=== PATIENT | male | born 1955 | race Caucasian/White ===

== ENCOUNTER 2020-03-22 14:07 | Outpatient (REF) | payer OTHER, SELFPAY ==
--- NOTE | 2020-03-22 15:11 | XR_ITS ---
EXAMINATION: XR HAND, LEFT CLINICAL INFORMATION: Left hand pain COMPARISON: None TECHNIQUE: PA, lateral, and oblique views of the left hand. FINDINGS: There is no evidence of acute fracture or dislocation of the left hand. No radiopaque foreign body is seen. There is soft tissue swelling/mass seen about the dorsum of the 4th proximal and mid phalanges. No underlying bony erosion is seen. No periosteal new bone formation is noted. Joint spaces are maintained. There is mild spurring about the 1st carpometacarpal joint. XR/XR hand LT min 3V IMPRESSION: 1. Soft tissue structure, dorsum of the left 4rth finger. 2. No significant bony abnormality identified.
== END 2020-03-22 14:08 | disposition home or self-care (01) ==
LOC: HO.HOSX 14:07
PROVIDERS: PCP Internal Medicine; Visit Provider Orthopaedic Surgery
DX: M79.89 Other specified soft tissue disorders (principal)
CPT/HCPCS: 73130; 99202

== ENCOUNTER → 2020-05-22 13:02 | Outpatient (BNVA) | payer OTHER, SELFPAY | PROVIDERS: PCP Internal Medicine; Visit Provider Physician Assistant | DX: Z13.89 Encounter for screening for other disorder (principal) | CPT/HCPCS: Q3014 ==

== ENCOUNTER → 2020-07-24 13:01 | Outpatient (BNVA) | payer OTHER, SELFPAY | PROVIDERS: PCP Internal Medicine; Referring Provider Internal Medicine; Visit Provider Internal Medicine Cardiovascular Disease | DX: I10 Essential (primary) hypertension (principal) | CPT/HCPCS: 93005; 99202 ==

== ENCOUNTER → 2020-09-20 15:00 | Outpatient (BNVA) | payer OTHER, SELFPAY | PROVIDERS: PCP Internal Medicine; Visit Provider Physician Assistant | DX: K21.9 Gastro-esophageal reflux disease without esophagitis (principal); K44.9 Diaphragmatic hernia without obstruction or gangrene | CPT/HCPCS: 99212 ==

== ENCOUNTER 2020-10-27 15:31 | Outpatient (REF) | payer MEDICARE, SELFPAY ==
--- NOTE | ~2020-10-27 | XR_ITS ---
EXAMINATION: XR KNEE, RIGHT XR KNEE, LEFT CLINICAL INFORMATION: Right and left knee pain. COMPARISON: None TECHNIQUE: AP, tunnel, lateral, and sunrise views of the right and left knee. FINDINGS: Right Knee: Mild medial compartment joint space narrowing. Tiny tricompartmental marginal osteophytes. No osseous erosion. Medial and lateral compartment chondrocalcinosis. No fracture or dislocation. No significant joint effusion. Left Knee: Mild medial compartment joint space narrowing. Tiny tricompartmental marginal osteophytes. No osseous erosion. Medial and lateral compartment chondrocalcinosis. No fracture or dislocation. No significant joint effusion. XR/XR knee RT 4V IMPRESSION: Right Knee: Mild tricompartmental osteoarthritis. Medial and lateral compartment chondrocalcinosis. Left Knee: Mild tricompartmental osteoarthritis. Medial and lateral compartment chondrocalcinosis.
--- NOTE | ~2020-10-27 | XR_ITS ---
EXAMINATION: XR KNEE, RIGHT XR KNEE, LEFT CLINICAL INFORMATION: Right and left knee pain. COMPARISON: None TECHNIQUE: AP, tunnel, lateral, and sunrise views of the right and left knee. FINDINGS: Right Knee: Mild medial compartment joint space narrowing. Tiny tricompartmental marginal osteophytes. No osseous erosion. Medial and lateral compartment chondrocalcinosis. No fracture or dislocation. No significant joint effusion. Left Knee: Mild medial compartment joint space narrowing. Tiny tricompartmental marginal osteophytes. No osseous erosion. Medial and lateral compartment chondrocalcinosis. No fracture or dislocation. No significant joint effusion. XR/XR knee LT 4V IMPRESSION: Right Knee: Mild tricompartmental osteoarthritis. Medial and lateral compartment chondrocalcinosis. Left Knee: Mild tricompartmental osteoarthritis. Medial and lateral compartment chondrocalcinosis.
== END 2020-10-27 15:32 | disposition home or self-care (01) ==
LOC: HO.XRAY 15:31
PROVIDERS: PCP Internal Medicine; Visit Provider Internal Medicine
DX: M25.561 Pain in right knee (principal); M25.562 Pain in left knee
CPT/HCPCS: 73564

== ENCOUNTER → 2020-12-27 13:13 | Outpatient (BNVA) | payer MEDICARE, SELFPAY | PROVIDERS: Visit Provider Orthopaedic Surgery | DX: M79.89 Other specified soft tissue disorders (principal) | CPT/HCPCS: 99212 ==

== ENCOUNTER → 2021-01-01 14:32 | Outpatient (BNVA) | payer OTHER, SELFPAY | PROVIDERS: Visit Provider Orthopaedic Surgery | DX: M17.0 Bilateral primary osteoarthritis of knee (principal) | CPT/HCPCS: 99202 ==

== ENCOUNTER 2021-01-15 07:23 | Day surgery (SDC) | payer MEDICARE, SELFPAY ==
[2021-01-08 10:51] VITALS: BMI 30.5
--- NOTE | 2021-01-11 13:35 | P.CONAN_ITS ---
Documented by User: Britni Poole NP 01/22/21 14:28 HPI - Anesthesia Eval Consult details Narrative: 65yo M for Left Ring Finger Mass Excisional Biopsy 07/2020 cardiol eval for new 1st AV - not present at office visit. To f/u in 1 year unless symptoms. [facility] Active Problems Active Problems: All Active Problems (Updated 01/08/21 @ 10:55 by Olga Gallardo RN) Mass of soft tissue of left upper extremity (Acute) Acid reflux (Acute) Hiatal hernia (Acute) Colonoscopy refused (Acute) Bilateral primary osteoarthritis of knee (Acute) Tubular adenoma (Acute) Past Medical History Medical History Acid reflux Chronic headaches High cholesterol History of blood clots History of cerebral hemorrhage Hypertension Seizure Tubular adenoma Family History Family History Mother No problems noted. Father No problems noted. Brother Anesthesia complication Surgical History Surgical History H/O colonoscopy History of esophagogastroduodenoscopy (EGD) Hx of brain surgery Hx of cervical spine surgery Dola teeth removed Social History Social History Household Members: None Alcohol intake: current Alcohol intake frequency: former alcohol drinker Patient Tobacco Use Status: Current everyday Tobacco user Tobacco use type: Cigarette Cigarettes Per Day: 6 Advance Directives Date on File: 04/11/19 Current occupational status: unemployed Current occupation: right handed Meds Allergies Allergy/AdvReac Type Severity Reaction Status Date / Time Seasonal Allergies Allergy Mild unknown Verified 01/01/21 14:43 Home Medications Medication Instructions Recorded Confirmed Last Taken Type amlodipine 10 mg 10 mg PO DAILY 03/22/20 01/08/21 01/15/21 History tablet atorvastatin 40 40 mg PO DAILY 03/22/20 01/08/21 Unknown History mg tablet folic acid 1 mg 1 mg PO DAILY 03/22/20 01/08/21 Unknown History tablet levetiracetam 250 250 mg PO BID 03/22/20 01/08/21 01/15/21 History mg tablet multivit with 1 tab PO DAILY 03/22/20 01/08/21 Unknown History min-folic acid-lutein 400 mcg-250 mcg chewable tablet (Centrum Silver) lisinopril 40 mg 40 mg PO DAILY 07/24/20 01/08/21 Unknown History tablet chlorthalidone 25 25 mg PO DAILY 09/20/20 01/08/21 Unknown History mg tablet acetaminophen 650 1,300 mg PO Q8H 01/01/21 01/08/21 Unknown History mg PRN tablet,extended release (Arthritis Pain Relief (acetaminophen) ER) ibuprofen 600 mg 600 mg PO Q4-6H 01/01/21 01/08/21 Unknown History tablet PRN omeprazole 40 mg 40 mg PO DAILY 01/01/21 01/08/21 01/15/21 History capsule,delayed release Exam Exam Date and Time: January 11, 2021 1335 Height,Weight and Vital Signs: Height 6 ft Weight 102.058 kg Narrative Narrative: EKG 07/2020 Sinus rhythm 86 beats per minute, normal axis, QTC is 421 milliseconds.? IN interval 168 milliseconds. Assessment and Plan Assessment Anesthesia Assessment: Chart Reviewed Documented by User: Kim Queen MD 01/15/21 08:08 [facility] Past Medical History Medical History Acid reflux Chronic headaches High cholesterol History of blood clots History of cerebral hemorrhage Hypertension Seizure Tubular adenoma Functional capacity: independent ambulation Family History Family History Mother No problems noted. Father No problems noted. Brother Anesthesia complication Family history of problems with anesthesia: No Surgical History Surgical History H/O colonoscopy History of esophagogastroduodenoscopy (EGD) Hx of brain surgery Hx of cervical spine surgery Dola teeth removed History of Problems with Anesthesia: No Social History Social History Household Members: None Alcohol intake: current Alcohol intake frequency: former alcohol drinker Patient Tobacco Use Status: Current everyday Tobacco user Tobacco use type: Cigarette Cigarettes Per Day: 6 Advance Directives Date on File: 04/11/19 Current occupational status: unemployed Current occupation: right handed Meds Allergies Allergy/AdvReac Type Severity Reaction Status Date / Time Seasonal Allergies Allergy Mild unknown Verified 01/01/21 14:43 Home Medications Medication Instructions Recorded Confirmed Last Taken Type amlodipine 10 mg 10 mg PO DAILY 03/22/20 01/08/21 01/15/21 History tablet atorvastatin 40 40 mg PO DAILY 03/22/20 01/08/21 Unknown History mg tablet folic acid 1 mg 1 mg PO DAILY 03/22/20 01/08/21 Unknown History tablet levetiracetam 250 250 mg PO BID 03/22/20 01/08/21 01/15/21 History mg tablet multivit with 1 tab PO DAILY 03/22/20 01/08/21 Unknown History min-folic acid-lutein 400 mcg-250 mcg chewable tablet (Centrum Silver) lisinopril 40 mg 40 mg PO DAILY 07/24/20 01/08/21 Unknown History tablet chlorthalidone 25 25 mg PO DAILY 09/20/20 01/08/21 Unknown History mg tablet acetaminophen 650 1,300 mg PO Q8H 01/01/21 01/08/21 Unknown History mg PRN tablet,extended release (Arthritis Pain Relief (acetaminophen) ER) ibuprofen 600 mg 600 mg PO Q4-6H 01/01/21 01/08/21 Unknown History tablet PRN omeprazole 40 mg 40 mg PO DAILY 01/01/21 01/08/21 01/15/21 History capsule,delayed release Assessment and Plan Final Anesthetic Review Family History of Problems with Anesthesia: No History of Problems with Anesthesia: No
[2021-01-15] VITALS (7 sets, daily range): BP systolic 110–144; BP diastolic 60–88; PULSE 67–80; RESP 16–19; TEMP 36.1–36.6; O2SAT 96–99
[2021-01-15] MEDS: Lactated Ringers 1,000 ML 100 ML IVCONT (08:04)
--- NOTE | 2021-01-15 09:17 | P.CONAN_ITS ---
[facility] Active Problems Active Problems: All Active Problems (Updated 01/08/21 @ 10:55 by Olga powers RN) Mass of soft tissue of left upper extremity (Acute) Acid reflux (Acute) Hiatal hernia (Acute) Colonoscopy refused (Acute) Bilateral primary osteoarthritis of knee (Acute) Tubular adenoma (Acute) Past Medical History Medical History Acid reflux Chronic headaches High cholesterol History of blood clots History of cerebral hemorrhage Hypertension Seizure Tubular adenoma Functional capacity: independent ambulation Family History Family History Mother No problems noted. Father No problems noted. Brother Anesthesia complication Family history of problems with anesthesia: No Surgical History Surgical History H/O colonoscopy History of esophagogastroduodenoscopy (EGD) Hx of brain surgery Hx of cervical spine surgery [place] teeth removed History of Problems with Anesthesia: No Social History Social History Household Members: None Alcohol intake: current Alcohol intake frequency: former alcohol drinker Patient Tobacco Use Status: Current everyday Tobacco user Tobacco use type: Cigarette Cigarettes Per Day: 6 Advance Directives Information Provided: Yes (informational brochure mailed) Advance Directives Date on File: 04/11/19 Current occupational status: unemployed Current occupation: right handed Meds Allergies Allergy/AdvReac Type Severity Reaction Status Date / Time Seasonal Allergies Allergy Mild unknown Verified 01/01/21 14:43 Active Medications: Current Medications Lactated Ringer's (Lr) 1,000 mls @ 100 mls/hr IVCONT .Q10H MARCELLO Last Admin: 01/15/21 08:04 Dose: 100 mls/hr Documented by: Home Medications Medication Instructions Recorded Confirmed Last Taken Type amlodipine 10 mg tablet 10 mg PO DAILY 03/22/20 01/08/21 01/15/21 History atorvastatin 40 mg tablet 40 mg PO DAILY 03/22/20 01/08/21 Unknown History folic acid 1 mg tablet 1 mg PO DAILY 03/22/20 01/08/21 Unknown History levetiracetam 250 mg tablet 250 mg PO BID 03/22/20 01/08/2101/15/21 History multivit with min-folic 1 tab PO DAILY 03/22/20 01/08/21 Unknown History acid-lutein 400 mcg-250 mcg chewable tablet (Centrum Silver) lisinopril 40 mg tablet 40 mg PO DAILY 07/24/20 01/08/21 Unknown History chlorthalidone 25 mg tablet 25 mg PO DAILY 09/20/20 01/08/21 Unknown History acetaminophen 650 mg 1,300 mg PO Q8H PRN 01/01/21 01/08/21 Unknown History tablet,extended release (Arthritis Pain Relief (acetaminophen) ER) ibuprofen 600 mg tablet 600 mg PO Q4-6H PRN 01/01/21 01/08/21 Unknown History omeprazole 40 mg capsule,delayed 40 mg PO DAILY 01/01/21 01/08/21 01/15/21 History release Exam Exam Date and Time: January 15, [id number] Height,Weight and Vital Signs: Height 6 ft Weight 102.058 kg Last Vital Signs Temp 98 F 01/15/21 07:31 Pulse 80 01/15/21 07:31 Resp 19 01/15/21 07:31 BP 110/78 01/15/21 07:31 Pulse Ox 97 01/15/21 07:31 Airway Mallampati Class: III TM Dist: >3cm Neck ROM: Full Denture: Upper Heart: RRR Lungs: CTA Assessment and Plan Final Anesthetic Review Family History of Problems with Anesthesia: No History of Problems with Anesthesia: No Final Preanesthetic Review: No Changes in Pt Med Stat Patient Risk: Intermediate Procedure Risk: Intermediate Anesthetic Plan Anesthetic Plan: GA Disposition: Standard PACU
--- NOTE | 2021-01-15 09:33 | MHC.SHP ---
Pre-Procedural Eval Section A Date of Service: 01/15/21 The patient is an INPATIENT: No Changes since office visit: No Cold of Flu in the past 2 weeks, No New Medical Problems, No Changes in Medication and No Patient answered all questions The History & Physical has been completed within 30 days and I have reviewed it.: Yes Section B Chief Complaint: Soft tissue disorder Allergies: Allergies Allergy/AdvReac Type Severity Reaction Status Date / Time Seasonal Allergies Allergy Mild unknown Verified 01/01/21 14:43 Plan I have reviewed the history and physical and performed a pertinent physical examination on my patient. No changes have occurred unless specified.
--- NOTE | 2021-01-15 09:33 | W.PM.OPN ---
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 The risks and benefits of operative treatment, including but not limited to risk of damage to blood vessels, nerves, tendons, infection, recurrence, persistent pain or numbness, incomplete resolution of preoperative symptoms, or need for further surgery were discussed with the patient and they wished to proceed with surgery. Procedure: Once consent was obtained patient was brought back to the operating suite and placed in the operating table in a supine position. Perioperative antibiotics and anesthesia was administered by the anesthesia team. A tourniquet was applied to the proximal aspect of the left upper extremity and the limb was prepped and draped in a standard surgical fashion. I performed a digital block using some 0.5% plain Marcaine. The tourniquet was not inflated during the case. A lazy-S incision was made over the dorsal aspect of the left ring finger PIP joint centered over the dorsal soft tissue mass. The incision was made through the skin to the subcutaneous tissues using a 15. Blade. I then dissected down to the level of the mass using tenotomy scissors. The mass measured approximately 2.5 cm in length by about 1.5 cm in diameter, was consistent in appearance with a lipoma. The mass was mobilized from the surrounding soft tissues, excised and placed on the back table to be sent for histopathology. It was found to lie directly dorsal to the extensor mechanism in the PIP joint. At this point the wound was copiously irrigated with normal saline and hemostasis obtained with a brief period of local pressure. The skin edges were reapproximated with 5-0 nylon suture and a sterile dressing was applied. The patient appears to have tolerated the procedure well and with no complications. All digits were well vascularized conclusion of the case.
--- NOTE | 2021-01-15 13:08 | HO.POSTANES ---
Post Anesthesia Evaluation Post Anesthesia Evaluation Vital Signs: Vital Signs Temp Pulse Resp BP Pulse Ox 01/15/21 11:15 97.0 F 70 16 144/88 H 99 01/15/21 11:00 74 16 127/72 99 01/15/21 10:45 72 16 120/85 99 01/15/21 10:40 70 16 116/72 97 01/15/21 10:35 68 16 124/86 96 01/15/21 10:30 97.0 F 67 16 114/60 96 01/15/21 07:31 98 F 80 19 110/78 97 Anesthesia: General LMA Pain Control: Satisfactory Nausea/Vomiting: None Hydration: Adequate Anesthesia-Related Issues: No Anes. Related Issues
== END 2021-01-15 12:03 | disposition home or self-care (01) ==
PROVIDERS: PCP Internal Medicine; Visit Provider Orthopaedic Surgery
PROC: (CPT 26111; principal; 2021-01-15 09:00)
DX: D21.9 Benign neoplasm of connective and other soft tissue, unspecified (principal); M79.89 Other specified soft tissue disorders; M79.645 Pain in left finger(s); I10 Essential (primary) hypertension; R56.9 Unspecified convulsions; Z86.73 Personal history of transient ischemic attack (TIA), and cerebral infarction without residual deficits; Z79.899 Other long term (current) drug therapy; F17.210 Nicotine dependence, cigarettes, uncomplicated
CPT/HCPCS: 26111; 88304; J0690; J1885; J2250; J2370; J2405; J3010

== ENCOUNTER → 2021-01-31 14:44 | Outpatient (BNVA) | payer MEDICARE, SELFPAY | PROVIDERS: PCP Internal Medicine; Visit Provider Orthopaedic Surgery | DX: M79.89 Other specified soft tissue disorders (principal); D17.9 Benign lipomatous neoplasm, unspecified | CPT/HCPCS: 99212 ==

== ENCOUNTER 2022-10-04 09:39 | Outpatient (REF) | payer OTHER, MEDICAID, SELFPAY ==
[2022-10-04 11:16] LABS: MANUAL DIFF FLAG NO
[2022-10-04 11:30] LABS: Basophils Percent Auto 0.6 % (0-2); Eosinophils Absolute Auto 0.1 X10*3/uL (0.0-0.4); Eosinophils Percent Auto 1.1 % (0-4); Hematocrit 35.9 % (42.0-52.0); Hemoglobin 12.3 g/dl (14.0-18.0); Imm Gran Abs Auto 0.03 X10*3/uL (0.00-0.03); Imm Gran Pct Auto 0.4 % (0.0-0.4); Lymphocytes Absolute Auto 2.7 X10*3/uL (1.2-4.9); Lymphocytes Percent Auto 38.5 % (20-40); Mean Corpuscular HGB Conc 34.3 g/dl (31.0-36.0); Mean Corpuscular Hemoglobin 32.7 pg (27.0-33.0); Mean Corpuscular Volume 95.5 fL (80.0-98.0); Mean Platelet Volume 10.7 fL (9.4-12.4); Monocytes Absolute Auto 0.4 X10*3/uL (0.1-1.2); Monocytes Percent Auto 5.8 % (2-11); Neutrophils Absolute Auto 3.8 x10*3/uL (2.0-8.3); Neutrophils Percent Auto 53.6 % (45-73); Platelet Count 272 X10*3/uL (160-400); Red Blood Count 3.76 X10*6/uL (4.60-5.80); Red Cell Distribution Width 12.1 % (11.0-16.0); White Blood Count 7.1 X10*3/uL (4.8-10.8)
[2022-10-04 11:33] LABS: Estimated Average Glucose 103 mg/dL; Hemoglobin A1c % 5.2 %
[2022-10-04 12:22] LABS: Albumin Level 4.8 g/dL (3.5-5.0); Alkaline Phosphatase 41 U/L (39-117); Anion Gap 18 (12-20); Aspartate Amino Transferase 18 U/L (5-37); Bilirubin Direct 0.1 mg/dL (0.0-0.5); Bilirubin Total 0.4 mg/dL (0.0-1.0); Blood Urea Nitrogen 14 mg/dL (9-16); Calcium 10.1 mg/dL (8.4-10.2); Carbon Dioxide 19 mmol/L (22-29); Chloride 105 mmol/L (96-108); Cholesterol 187 mg/dL; Estimated Glomerular Filt Rate > 60; Glucose Random 92 mg/dL (60-115); HDL Cholesterol 34 mg/dL; LDL Cholesterol Calculated 100 mg/dl; Potassium 3.6 mmol/L (3.3-5.1); Sodium 138 mmol/L (135-145); Total Protein 7.8 g/dL (6.5-8.0); Triglycerides 268 mg/dL
[2022-10-04 13:10] LABS: Alanine Aminotransferase 18 U/L (0-40)
== END 2022-10-04 09:40 | disposition home or self-care (01) ==
LOC: HO.HHCL 09:39
PROVIDERS: Visit Provider Internal Medicine
DX: I10 Essential (primary) hypertension (principal); E11.65 Type 2 diabetes mellitus with hyperglycemia
CPT/HCPCS: 36415; 80048; 80061; 80076; 83036; 85025

== ENCOUNTER 2022-11-08 14:40 | Outpatient (REF) | payer OTHER, SELFPAY ==
[2022-11-08 16:09] LABS: Basophils Absolute Auto 0.1 X10*3/uL (0.0-0.2); Basophils Percent Auto 0.6 % (0-2); Eosinophils Absolute Auto 0.1 X10*3/uL (0.0-0.4); Eosinophils Percent Auto 1.4 % (0-4); Hematocrit 35.9 % (42.0-52.0); Hemoglobin 12.7 g/dl (14.0-18.0); Imm Gran Abs Auto 0.03 X10*3/uL (0.00-0.03); Imm Gran Pct Auto 0.3 % (0.0-0.4); Lymphocytes Absolute Auto 3.4 X10*3/uL (1.2-4.9); Lymphocytes Percent Auto 34.9 % (20-40); MANUAL DIFF FLAG NO; Mean Corpuscular HGB Conc 35.4 g/dl (31.0-36.0); Mean Corpuscular Hemoglobin 32.9 pg (27.0-33.0); Mean Platelet Volume 10.2 fL (9.4-12.4); Monocytes Absolute Auto 0.6 X10*3/uL (0.1-1.2); Monocytes Percent Auto 5.8 % (2-11); Neutrophils Absolute Auto 5.5 x10*3/uL (2.0-8.3); Platelet Count 269 X10*3/uL (160-400); Red Blood Count 3.86 X10*6/uL (4.60-5.80); Red Cell Distribution Width 11.9 % (11.0-16.0); White Blood Count 9.7 X10*3/uL (4.8-10.8)
[2022-11-08 16:45] LABS: Iron 104 mcg/dL (45-160); Percent Iron Saturation 32 % (15-50); Total Iron Binding Capacity 326 mcg/dL (228-428); Unsaturated Iron Binding 222 ug/dL
[2022-11-08 17:20] LABS: Folate > 20.0 ng/mL (> or = 4.0); Vitamin B12 704 pg/mL (200-900)
== END 2022-11-08 14:41 | disposition home or self-care (01) ==
LOC: HO.HHCL 14:40
PROVIDERS: Visit Provider Internal Medicine
DX: D64.9 Anemia, unspecified (principal)
CPT/HCPCS: 36415; 82607; 82746; 83540; 85025

== ENCOUNTER 2024-07-06 09:46 | Outpatient (REF) | payer OTHER, SELFPAY ==
--- OUTSIDE RECORDS SUMMARY | 2024-07-06 10:55 | XMS_ITS | Clinical Summary ---
Author Organization [employer] Address [address] [place] [address] Care Team Providers Care Commercial Lending Vice President Name Role Phone Batsheva Bhardwaj MD Primary Care Provide r Allergies No known active allergies Medications levETIRAcetam (Keppra) 250 MG tablet Take 250 mg by mouth 2 times daily. 08/03/19 22 Active acetaminophen (Tylenol 8 Hour) 650 MG ER tabletIndications :Pain TAKE 2 TABLETS BY MOUTH EVERY 8 HOURS NEEDED 180 tablet 07/17/19 24 Active atorvastatin (Lipitor) 40 MG tabletIndications :Mixed hyperlipidemia TAKE 1 TABLET BY MOUTH AT BEDTIME 90 tablet 3 07/29/19 24 Active amLODIPine (Norvasc) 10 MG tabletIndications :Primary hypertension TAKE 1 TABLET BY MOUTH EVERY MORNING 90 tablet 3 07/29/19 24 Active lisinopril 40 MG tabletIndications :Primary hypertension,Mixe d hyperlipidemia TAKE 1 TABLET BY MOUTH EVERY EVENING 90 tablet 3 07/30/19 24 Active ferrous sulfate 325 (65 Fe) MG EC tabletIndications :Anemia, unspecified type TAKE 1 TABLET BY MOUTH EVERY OTHER DAY IN THE MORNING 45 tablet 3 10/22/19 24 Active Ascorbic Acid (vitamin C) 500 MG tabletIndications :Anemia, unspecified type TAKE 1 TABLET BY MOUTH EVERY OTHER DAY IN THE MORNING 45 tablet 3 10/22/19 24 Active fenofibrate (Triglide) 160 MG tabletIndications :Hypertriglycerid emia TAKE 1 TABLET BY MOUTH EVERY MORNING 90 tablet 04/15/19 25 Active folic acid (Folvite) 1 MG tabletIndications :Hypertriglycerid emia TAKE 1 TABLET BY MOUTH EVERY MORNING 90 tablet 04/15/19 25 Active carvedilol (Coreg) 6.25 MG tabletIndications :Essential hypertension TAKE 1 TABLET BY MOUTH TWICE DAILY IN THE MORNING AND IN THE EVENING WITH FOOD 60 tablet 1 05/14/19 25 Active sucralfate (Carafate) 1 g tabletIndications :Gastroesophageal reflux disease, unspecified whether esophagitis present TAKE 1 TABLET BY MOUTH TWICE DAILY BEFORE BREAKFAST AND BEFORE SUPPER 60 tablet 1 05/14/19 25 Active melatonin 3 MG tabletIndications :Primary insomnia TAKE 1 TABLET BY MOUTH 30 TO 60 MINUTES BEFORE BEDTIME 30 tablet 05/20/19 25 Active chlorthalidone (Hygroton) 50 MG tabletIndications :Essential hypertension TAKE 1 TABLET BY MOUTH EVERY MORNING 90 tablet 06/19/19 25 Active cetirizine (ZyrTEC) 10 MG tabletIndications :Seasonal allergies TAKE 1 TABLET BY MOUTH EVERY EVENING 90 tablet 06/19/19 25 Active Multiple Vitamins-Minerals (Cerovite Senior) tabletIndications :Generalized abdominal pain TAKE 1 TABLET BY MOUTH EVERY MORNING 90 tablet 06/19/19 25 Active omeprazole (PriLOSEC) [address] capsuleIndication s:Generalized abdominal pain TAKE 1 CAPSULE BY MOUTH EVERY MORNING BEFORE BREAKFAST 90 capsule 06/19/19 25 Active omeprazole (PriLOSEC) [address] capsuleIndication s:Generalized abdominal pain TAKE 1 CAPSULE BY MOUTH EVERY MORNING BEFORE BREAKFAST 90 capsule 1 12/23/19 24 025 Discontinued chlorthalidone (Hygroton) 50 MG tabletIndications :Essential hypertension TAKE 1 TABLET BY MOUTH EVERY MORNING 90 tablet 03/16/19 25 025 Discontinued cetirizine (ZyrTEC) 10 MG tabletIndications :Seasonal allergies TAKE 1 TABLET BY MOUTH EVERY EVENING 90 tablet 03/16/19 25 025 Discontinued Multiple Vitamins-Minerals (Cerovite Senior) tabletIndications :Generalized abdominal pain TAKE 1 TABLET BY MOUTH EVERY MORNING 90 tablet 03/16/19 25 025 Discontinued Active Problems Problem Noted Date Diagnosed Date Benign paroxysmal vertigo, unspecified ear 07/06 Bilateral tinnitus 07/06/2024 Resistant hypertension 07/06/2024 Assessment & Plan (07/06/2024 10:31 AM EDT): I will order labs patient will be contacted with results I will refer this patient to nephrology and pharmacy I did advise low-sodium diet Irregular heart beat 02/06/2023 02/06/2023 Dizziness 11/08/2022 Colon cancer screening 11/08/2022 Seizure disorder 09/30/2022 Forgetfulness 09/30/2022 Assessment & Plan (11/08/2022 4:21 PM EDT): Waiting for neurology evaluation Anemia 09/25/2022 Assessment & Plan (11/08/2022 4:21 PM EDT): Possibly causing fatigue dizziness, blood work ordered today, colorguard ordered Patient to be contacted with results Bilateral primary osteoarthritis of knee 023 Assessment & Plan (11/08/2022 4:20 PM EDT): Declines pain management referral, declines opioids, continue with acetaminophen PRN First degree atrioventricular block 09/25/2022 Essential hypertension 09/25/2022 Assessment & Plan (11/08/2022 4:19 PM EDT): Counseling about low Na diet and weight reduction done C/w chlortalidone 50mg daily, lisinopril 40mg daily, amlodipine 10mg daily, today I added carvedilol 6.25mg BID Assessment & Plan (09/30/2022 2:45 PM EDT): Today BP is high I increase his chloralidone I advise low Na diet RTC 6 weeks in person with BP log Encounters Date Type Department Care Team Description 07/06/2024 9:15 AM EDT Office Visit [facility] [address] [place] [id number] Batsheva Bhardwaj MD Benign paroxysmal vertigo, unspecified laterality; Bilateral tinnitus; Resistant hypertension 07/01/2024 Telephone [facility] [address] [place] [address] Batsheva Bhardwaj MD Chart prep 06/17/2024 Refill [facility] [address] [place], [place] [phone] Batsheva Bhardwaj MD Essential hypertension; Seasonal allergies; Generalized abdominal pain 05/18/2024 Refill [facility] [address] [place], [place] [phone] Batsheva Bhardwaj MD Primary insomnia 05/13/2024 Refill [facility] [address] [place] [address] Batsheva Bhardwaj MD Essential hypertension; Gastroesophageal reflux disease, unspecified whether esophagitis present 04/20/2024 Refill [facility] [address] [place] [address] Batsheva Bhardwaj MD Primary insomnia 04/14/2024 Refill [facility] [address] [place] [address] Batsheva Bhardwaj MD Hypertriglyceridemia from Last 3 Months Immunizations Name Administration Dates Next Due Pneumococcal Conjugate PCV 13 01/07/2019 Social History Tobacco Use Types Packs/Day Years Used Date Smoking Tobacco: Every Day Cigarettes Passive Smoke Exposure: Current Smokeless Tobacco: Never Tobacco Cessation:Ready to Q uit: Not Asked; Counseling Given: Not Answered Alcohol Use Standard Drinks/Week Comments Never 0 (1 standard drink = 0.6 oz pur e alcohol) Depression Answer Date Recorded Patient Health Questionnaire-9 Score 0 07/06/2024 Patient Health Questionnaire-9 Score 0 07/06/2024 Last PHQ-9: Questionnaire Data Not on file 0 07/06/2024 Housing Stability Answer Date Recorded What is your housing situation today? I have [employer] bliss 07/06/[address] you li ve. Do you have problems with any of the following? None of the above 07/06/2024 Food Insecurity Answer Date Recorded Within the past 12 months, y ou worried that your food would run out before you got money to buy more: Never True 07/06/2024 Within the past 12 months,th e food you bought just didn't last and you didn't have enough money to get more: Never True Transportation Answer Date Recorded In the past 12 months, has l ack of transportation kept you from medical appts, meetings, work or from getting things needed for daily living? No 07/06/2024 Utilities Answer Date Recorded In the past 12 months, has t he electric, gas, oil or water company threatened to shut off services in your home? No 07/06/2024 Depression Answer Date Recorded Patient Health Questionnaire-2 Score 0 07/06/2024 Internet Access Answer Date Recorded Internet Access Q1 No 07/06/2024 Internet Access Q2 I do not want or need it 06/09 Sex and Gender Information Value Date Recorded Sex Assigned at Male 01/07/2022 10:36 AM EDT Legal Sex Male 10:36 AM EDT Gender Identity Male 01/07/2022 10:36 AM EDT Sexual Orientation Choose not to disclose 2021 10:36 AM EDT Last Filed Vital Signs Vital Sign Reading Time Taken Comments Blood Pressure 164/64 07/06/2024 10:31 AM EDT Pulse 72 07/06/2024 9:15 AM EDT Temperature 36.9 ??C (98.5 ??F) 07/06/2024 9:15 AM ED T Respiratory Rate 20 07/06/2024 9:15 AM EDT Oxygen Saturation 97% 11/08/2022 1:50 PM EDT Inhaled Oxygen Concentration - - Weight 94 kg (207 lb 4 oz) 07/06/2024 9:15 AM ED T Height 177.4 cm (5' 9.84 ) 07/06/2024 9:15 AM ED T Body Mass Index 29.88 07/06/2024 9:15 AM EDT Plan of Treatment Health Maintenance Due Date Last Done Comments CT Colonography 1953 Colonoscopy 1953 Colorectal Cancer Screening 1953 FIT DNA/Cologuard 1953 FIT 1953 FOBT 1953 Sigmoidoscopy 1953 Alcohol/Substance Use Screening 1965 Hepatitis C Screening 08/21/1971 DTaP/Tdap/Td Vaccines (1 - Tdap) 1972 Zoster Vaccines (1 of 2) 08/21/2003 Pneumococcal Vaccine: 50+ Years (2 of 2 - PPSV23) 03/04/2019 01/07/2019 COVID-19 Vaccine (1 - 2023-2 5 season) 2023 Influenza Vaccine (#1) 2023 Depression Screening 07/06/2025 07/06/2024, 07/06/2024 SDOH Screening 07/06/2025 07/06/2024 Tobacco Screening 07/06/2025 07/06/2024 Lipid Panel 10/05/2027 10/04/2022, 05/15/2021, 03/08/2020 RSV Patients and Patients Aged 60 years or older (1 - 1-dose 75+ series) 2028 HIB Vaccines Aged Out No longer eligi ble based on patient's age to complete this topic HPV Vaccines Aged Out No longer eligi ble based on patient's age to complete this topic Hepatitis A Vaccines Aged Out No long er eligible based on patient's age to complete this topic Hepatitis B Vaccines Aged Out No long er eligible based on patient's age to complete this topic IPV Vaccines Aged Out No longer eligi ble based on patient's age to complete this topic Meningococcal Vaccine Aged Out No tian jeremias eligible based on patient's age to complete this topic RSV under 20 months Aged Out No longe r eligible based on patient's age to complete this topic Rotavirus Vaccines Aged Out No longer eligible based on patient's age to complete this topic Procedures Procedure Name Priority Date/Time Associated Diagnosis Comments LIPID PANEL, STANDARD Routine 10/04/2022 9:42 AM EDT Essential hypertension from Last 3 Months or Most Recently Relevant to Health Maintenance Results * Lipid Panel, Standard (10/04/2022 9:42 AM EDT) Triglycerides 268 mg/dL [facility] Comment:Desirable Triglyceri de: less than 150 mg/dLBorderline High Triglyceride 150-199 mg/dLHigh Triglyceride: 200-499 mg/dLVery High Triglyceride: greater than or equal to 5OO mg/dL Cholesterol 187 mg/dL [facility] Comment:Desirable Cholestero l: less than 200 mg/dLBorderline High Cholesterol: 200-239 mg/dLHigh Cholesterol: greater than 239 mg/dL LDL Cholesterol Calculated 100 mg/dl [facility] Comment:Desirable LDL: less than 100 mg/dLNear Optimal/Above Optimal LDL: 110- 129 mg/dLBorderline High LDL: 130-159 mg/dLHigh LDL: 160-189 mg/dLVery High LDL: greater than or equal to 190 mg/dL HDL Cholesterol 34 mg/dL [facility] Comment:Desirable HDL: great er than 40 mg/dL Note: This HDL assay may give artificially low results in patients with liver disease. Blood Venous blood specimen / Unknown 10/04/2022 9:42 AM EDT 10/04/2022 11:09 AM EDT Batsheva Tracy MD LAB BLOOD ORDERABLES Final Result [facility] [address] [place] [address] [phone] from Last 3 Months or Most Recently Relevant to Health Maintenance Insurance [facility] [employer] OPTIONS (O D-SNP) Member Subscriber Plan / Payer (Ef fective 2024-Present) Name:Ralph Jose Relation to Subscriber:Self Name:Ralph Jose Payer ID:Not on file Group ID:[facility] [place] Type:Medicare Address: [place] [address] [address] [id number] Care Teams Commercial Lending Vice President Relationship Specialty Start Date End Date Batsheva Bhardwaj MD [address] [place] [address] PCP - General Family Medicine 01/07/19
--- OUTSIDE RECORDS SUMMARY | 2024-07-06 10:55 | XMS_ITS | Encounter Summary ---
Author Organization [employer] Address [address] [place] [address] Care Team Providers Care Adjunct Latin Professor Name Role Phone Batsheva Bhardwaj MD Primary Care Provide r Reason for Visit * Reason Onset Date Comments Chart prep 07/01/2024 Encounter Details Date Type Department Care Team (Late st Contact Info) Description 07/01/2024 Telephone [facility] [address] [place], [place] [phone] Batsheva Bhardwaj MD [address] [place], [place] [phone] Chart prep Social History Tobacco Use Types Packs/Day Years Used Date Smoking Tobacco: Every Day Cigarettes Passive Smoke Exposure: Current Smokeless Tobacco: Never Alcohol Use Standard Drinks/Week Comments Never 0 (1 standard drink = 0.6 oz pur e alcohol) Depression Answer Date Recorded Patient Health Questionnaire-9 Score 0 09/30/2022 Housing Stability Answer Date Recorded What is your housing situation today? I have coltonch[employer] bliss 12/26/[address] you li ve. Do you have problems with any of the following? None of the above 12/26/2022 Food Insecurity Answer Date Recorded Within the past 12 months, y ou worried that your food would run out before you got money to buy more: Never True 12/26/2022 Within the past 12 months,th e food you bought just didn't last and you didn't have enough money to get more: Never True Transportation Answer Date Recorded In the past 12 months, has l ack of transportation kept you from medical appts, meetings, work or from getting things needed for daily living? No 12/26/2022 Utilities Answer Date Recorded In the past 12 months, has t he electric, gas, oil or water company threatened to shut off services in your home? No 12/26/2022 Depression Answer Date Recorded Patient Health Questionnaire-2 Score 0 09/30/2022 Sex and Gender Information Value Date Recorded Sex Assigned at Male 01/07/2022 10:36 AM EDT Legal Sex Male 10:36 AM EDT Gender Identity Male 01/07/2022 10:36 AM EDT Sexual Orientation Choose not to disclose 2021 10:36 AM EDT documented as of this encounter Miscellaneous Notes * Telephone Encounter - Radha Samuels [place] - 07/01/2024 3:18 PM EDT Chart Prep Labs: done Images: done Referrals: complete Vaccines due: yes Screenings: colonoscopy Overdue care gaps: SDOH and PHQ-9 documented in this encounter Plan of Treatment Not on file documented as of this encounter Visit Diagnoses Not on filedocumented in this encounter Additional Health Concerns Assessment Noted Time PHQ-9 Depression Total Score: 0 10/01/19 23 2:04 PM EDT documented as of this encounter Care Teams Adjunct Latin Professor Relationship Specialty Start Date End Date Batsheva Bhardwaj MD [address] [place] [address] PCP - General Family Medicine 01/07/19 documented as of this encounter
--- OUTSIDE RECORDS SUMMARY | 2024-07-06 10:55 | XMS_ITS | Encounter Summary ---
Author Organization [employer] Address [address] [place] [address] Care Team Providers Care Retail Wireless Sales Consultant Name Role Phone Batsheva Bhardwaj MD Primary Care Provide r Reason for Visit * Reason Comments Med Refill Encounter Details Date Type Department Care Team (Late st Contact Info) Description 04/07/2022 Refill [facility] [address] [place] [address] Gerda Knapp, ANP [address] [place] [address] Gastroesophageal reflux disease, unspecified whether esophagitis present Social History Tobacco Use Types Packs/Day Years Used Date Smoking Tobacco: Never Assessed Sex and Gender Information Value Date Recorded Sex Assigned at Male 01/07/2022 10:36 AM EDT Legal Sex Male 10:36 AM EDT Gender Identity Male 01/07/2022 10:36 AM EDT Sexual Orientation Choose not to disclose 2021 10:36 AM EDT documented as of this encounter Plan of Treatment Not on file documented as of this encounter Visit Diagnoses Diagnosis Gastroesophageal reflux disease, unspecified whether esophagitis present documented in this encounter Care Teams Retail Wireless Sales Consultant Relationship Specialty Start Date End Date Batsheva Bhardwaj MD [address] [place] [address] PCP - General Family Medicine 01/07/19 [facility] 02/13/24 06/29/24 documented as of this encounter
--- OUTSIDE RECORDS SUMMARY | 2024-07-06 10:55 | XMS_ITS | Encounter Summary ---
Author Organization [employer] Address [address] [facility] 7t [place] [address] Care Team Providers Care Brimming Machine Operator Name Role Phone Batsheva Bhardwaj MD Primary Care Provide r Reason for Visit * Reason Onset Date Comments Med Refill POMOLOGY TEACHER Hours 12/05/2022 Martha, the pt 's POMOLOGY TEACHER, called regarding a request for a letter so that the pt's POMOLOGY TEACHER hours could be increased. The pt signed a release, authorizing her to turkey picker the letter at [facility], therefore, I informed her that he needs to call [facility] because the request needs to go through them. She verbalized understanding. Encounter Details Date Type Department Care Team (Late st Contact Info) Description 12/05/2022 Telephone [facility] MED & PEDS [address] [place] [address] Batsheva Bhardwaj MD [address] [place] [phone] Med Refill; POMOLOGY TEACHER Hours (Martha, the pt's POMOLOGY TEACHER, called regarding a request for a letter so that the pt's POMOLOGY TEACHER hours could be increased. The pt signed a release, authorizing her to turkey picker the letter at [facility], therefore, I informed her that he needs to call [facility] because the request needs to go through them. She verbalized understanding.) Social History Tobacco Use Types Packs/Day Years Used Date Smoking Tobacco: Every Day Cigarettes Passive Smoke Exposure: Current Smokeless Tobacco: Never Alcohol Use Standard Drinks/Week Comments Never 0 (1 standard drink = 0.6 oz pur e alcohol) Depression Answer Date Recorded Patient Health Questionnaire-9 Score 0 09/30/2022 Depression Answer Date Recorded Patient Health Questionnaire-2 Score 0 09/30/2022 Sex and Gender Information Value Date Recorded Sex Assigned at Male 01/07/2022 10:36 AM EDT Legal Sex Male 10:36 AM EDT Gender Identity Male 01/07/2022 10:36 AM EDT Sexual Orientation Choose not to disclose 2021 10:36 AM EDT documented as of this encounter Miscellaneous Notes * Telephone Encounter - Carrie Leonardo MA - 12/05/2022 3:23 PM EDT Martha, the pt's POMOLOGY TEACHER, called regarding a request for a letter so that the pt's POMOLOGY TEACHER hours could beincreased. The pt signed a release, authorizing her to turkey picker the letter at [facility], therefore, I informed her that he needs to call [facility] because the request needs to go through them. She verbalized understanding. documented in this encounter Plan of Treatment Not on file documented as of this encounter Visit Diagnoses Diagnosis Primary insomnia Persistent disorder of initiating or maintaining sleep Pain Generalized pain documented in this encounter Additional Health Concerns Assessment Noted Time PHQ-9 Depression Total Score: 0 10/01/19 23 2:04 PM EDT documented as of this encounter Care Teams Brimming Machine Operator Relationship Specialty Start Date End Date Batsheva Bhardwaj MD [address] [place] [address] PCP - General Family Medicine 01/07/19 [facility] 02/13/24 06/29/24 documented as of this encounter
--- OUTSIDE RECORDS SUMMARY | 2024-07-06 10:55 | XMS_ITS | Clinical Summary ---
Author Organization [facility] Address [address] [place] [address] Care Team Providers Care Silviculturist Name Role Phone Unavailable Primary Care Provider Unavailabl e Source Comments PLEASE NOTE, if this patient is a minor, it may be UNLAWFUL to discuss sensitive information that is contained in these records (such as FAMILY PLANNING, MENTAL HEALTH or SUBSTANCE ABUSE) with the minor patient's parent or other person without the patient's specific authorization.[facility] Allergies No known active allergies Medications clonazePAM (KLONOPIN) 0.5 mg tablet Take 0.5 mg by mouth 2 (two) times daily as needed for anxiety Active lisinopril-hydr ochlorothiazide 10-12.5 mg per tablet Take 1 Tab by mouth once daily 30 Tab 11/10/2018 Active levETIRAcetam (KEPPRA) 750 mg tablet Take 1 Tab by mouth 2 (two) times daily 60 Tab 11/10/2018 Active folic acid (FOLVITE) 1 mg tablet Take 1 Tab by mouth once daily 30 Tab 11/10/2018 Active Social History Tobacco Use Types Packs/Day Years Used Date Smoking Tobacco: Never Assessed Social Connections Answer Date Recorded Social Connections and Isolation 0 10/30/2018 Financial Resource Strain Answer Date R ecorded Financial Resource Strain 0 2018 Stress Answer Date Recorded Stress 0 10/30/2018 Physical Activity Answer Date Recorded Physical Activity 0 10/30/2018 Food Insecurity Answer Date Recorded Food 0 10/30/2018 Transportation Needs Answer Date Record ed Transportation 0 10/30/2018 Housing Stability Answer Date Recorded Housing 0 10/30/2018 Safety and Environment Answer Date Raphael rded Safety 0 10/30/2018 Utilities Answer Date Recorded Utilities 0 10/30/2018 Employment Answer Date Recorded Employment 0 10/30/2018 Sex and Gender Information Value Date Recorded Sex Assigned at Not on file Legal Sex Male 8:43 AM PDT Gender Identity Not on file Sexual Orientation Not on file Last Filed Vital Signs Vital Sign Reading Time Taken Comments Blood Pressure 154/84 10/19/2018 12:17 PM EDT Pulse 75 10/19/2018 12:17 PM EDT Temperature 36.7 ??C (98 ??F) 10/19/2018 12:17 PM EDT Respiratory Rate - - Oxygen Saturation 99% 10/19/2018 12:17 PM EDT Inhaled Oxygen Concentration - - Weight - - Height - - Body Mass Index - - Plan of Treatment Not on file [place]
--- OUTSIDE RECORDS SUMMARY | 2024-07-06 10:55 | XMS_ITS | Encounter Summary ---
Author Organization [employer] Address [address] [facility] [address] [facility] [address] 7[address] [place] [address] Care Team Providers Care Vegetable Buncher Name Role Phone Batsheva Bhardwaj MD Primary Care Provide r Reason for Visit * Reason Onset Date Comments Paperwork/Forms 05/21/2023 Encounter Details Date Type Department Care Team (Late st Contact Info) Description 05/21/2023 Telephone [facility] MEDICINE [address] [place] [address] Batsheva Bhardwaj MD [address] [place] [address] Paperwork/Forms Social History Tobacco Use Types Packs/Day Years Used Date Smoking Tobacco: Every Day Cigarettes Passive Smoke Exposure: Current Smokeless Tobacco: Never Alcohol Use Standard Drinks/Week Comments Never 0 (1 standard drink = 0.6 oz pur e alcohol) Depression Answer Date Recorded Patient Health Questionnaire-9 Score 0 09/30/2022 Housing Stability Answer Date Recorded What is your housing situation today? I have [employer] 12/26/[address] you [...] the past 12 months, has t he [employer], gas, oil or water company threatened to [...] encounter Miscellaneous Notes * Telephone Encounter - Miesha Mullins - 05/21/2023 11:42 AM EDT Tc from [facility] calling to inform she received the plan of care documents on 05/13/23 but only received 4 pages and it should have been 5 pages . Any question please contact phone # [phone] . documented in this encounter Plan of Treatment Not on file documented as of this encounter Visit Diagnoses Not on filedocumented in this encounter Additional Health Concerns Assessment Noted Time PHQ-9 Depression Total Score: 0 10/01/19 23 2:04 PM EDT documented as of this encounter Care Teams Vegetable Buncher Relationship Specialty Start Date End Date Batsheva Bhardwaj MD [address] [place] [address] PCP - General Family Medicine 01/07/19 [facility] 02/13/24 06/29/24 documented as of this encounter
--- OUTSIDE RECORDS SUMMARY | 2024-07-06 10:55 | XMS_ITS | Encounter Summary ---
Author Organization [facility] Address [address] [facility] 7[address] h Floor [place] [id number] Care Team Providers Care Dermatology Nurse Practitioner Name Role Phone Batsheva Bhardwaj MD Primary Care Provide r Reason for Visit * Reason Comments Med Refill Encounter Details Date Type Department Care Team (Late st Contact Info) Description 10/02/2022 Refill [facility] MEDICINE [address] [place], [place] [phone] Batsheva Bhardwaj MD [address] [place], [place] [phone] Pain Social History Tobacco Use Types Packs/Day Years [...] as of this encounter Visit Diagnoses Diagnosis Pain Generalized pain documented in this encounter Additional Health Concerns Assessment Noted Time PHQ-9 Depression Total Score: 0 10/01/19 23 2:04 PM EDT documented as of this encounter Care Teams Dermatology Nurse Practitioner Relationship Specialty Start Date End Date Batsheva Bhardwaj MD [address] [place], [place] [phone] PCP - General Family Medicine 01/07/19 [facility] 02/13/24 06/29/24 documented as of this encounter
--- OUTSIDE RECORDS SUMMARY | 2024-07-06 10:55 | XMS_ITS | Encounter Summary ---
Author Organization [employer] [facility] Address [address] [facility] 7t [place] [address] Care Team Providers Care Mold Cleaner Name Role Phone Batsheva Bhardwaj MD Primary Care Provide r Reason for Referral * Consultation (Routine) - Authorized Specialty Diagnoses / Procedures Referred By Pavel wiggins Referred To Contact Pharmacy Diagnoses Resistant hypertension Batsheva Bhardwaj MD [address] [place] [address] Phone: tel: fax: Referral ID Status Reason Start Date Expiration Date Visits Requested Visits Authorized [id number] Authorized Consult and Treat 07/06/2024 07/06/2025 6 6 * Consultation (Routine) - Pending Review Specialty Diagnoses / Procedures Referred By Pavel wiggins Referred To Contact Nephrology Diagnoses Resistant hypertension Batsheva Bhardwaj MD [address] [place], [place] Phone: tel: fax: Referral ID Status Reason Start Date Expiration Date Visits Requested Visits Authorized [id number] Pending Review Specialty Services Required 07/06/2024 07/06/2025 1 1 * Consultation (Routine) - Pending Review Specialty Diagnoses / Procedures Referred By Pavel wiggins Referred To Contact Otolaryngology Diagnoses Benign paroxysmal vertigo, unspecified laterality Bilateral tinnitus Batsheva Bhardwaj MD [address] [place] [address] Phone: tel: fax: Referral ID Status Reason Start Date Expiration Date Visits Requested Visits Authorized [id number] Pending Review Specialty Services Required 07/06/2024 07/06/2025 1 1 Encounter Details Date Type Department Care Team (Late st Contact Info) Description 07/06/2024 9:15 AM EDT Office Visit [facility] [address] [place] [address] Batsheva Bhardwaj MD [address] [place] [address] Benign paroxysmal vertigo, unspecified laterality; Bilateral tinnitus; Resistant hypertension Social History Tobacco Use Types Packs/Day Years [...] AM EDT documented as of this encounter Last Filed Vital Signs Vital Sign Reading Time Taken Comments Blood Pressure 164/64 07/06/2024 10:31 AM EDT Pulse 72 07/06/2024 9:15 AM EDT Temperature 36.9 ??C (98.5 ??F) 07/06/2024 9:15 AM ED T Respiratory Rate 20 07/06/2024 9:15 AM EDT Oxygen Saturation - - Inhaled Oxygen Concentration - - Weight 94 kg (207 lb 4 oz) 07/06/2024 9:15 AM ED T Height 177.4 cm (5' 9.84 ) 07/06/2024 9:15 AM ED T Body Mass Index 29.88 07/06/2024 9:15 AM EDT documented in this encounter Progress Notes * Batsheva Tracy MD - 07/06/2024 9:15 AM EDT SUBJECTIVE: Ralph De Oliveira is a 68 y.o. year old male who presents for Chronic Disease Management . Acute Concerns: Patient reports his blood pressure is much better at home and that he is only takin ine medication Patient reports he does not like to take medications that are not necessary, he reports he does nothave seizures and reports he is not taking his keppra prescribed by neurology Patient c/o on and off dizziness when he turns his head and ringing on both ears Social History Social History Narrative Not on file Patient Active Problem List Diagnosis Anemia Bilateral primary osteoarthritis of knee First degree atrioventricular block Essential hypertension Seizure disorder (CMS/HCC) Forgetfulness Dizziness Colon cancer screening Irregular heart beat Benign paroxysmal vertigo, unspecified ear Bilateral tinnitus Resistant hypertension No family history on file. Review of Systems Constitutional: Negative. HENT: Negative. Respiratory: Negative. Cardiovascular: Negative. Musculoskeletal: Positive for arthralgias. OBJECTIVE: Vitals: 07/06/24 0915 07/06/24 1031 BP: (!) 160/76 (!) 164/64 BP Location: Left arm Patient Position: Sitting BP Cuff Size: Large adult Pulse: 72 Resp: 20 Temp: 98.5 ??F (36.9 ??C) TempSrc: Oral Weight: 207 lb 4 oz (94 kg) Height: 5' 9.84 (1.774 m) Physical Exam Constitutional: Appearance: Normal appearance. Cardiovascular: Rate and Rhythm: Normal rate and regular rhythm. Pulmonary: Effort: Pulmonary effort is normal. Breath sounds: Normal breath sounds. Abdominal: General: Abdomen is flat. Palpations: Abdomen is soft. Musculoskeletal: Right lower leg: No edema. Left lower leg: No edema. Neurological: Mental Status: He is alert. Follow Up: No follow-ups on file. Current Outpatient Medications on File Prior to Visit Medication Sig Dispense Refill acetaminophen (Tylenol 8 Hour) 650 MG ER tablet TAKE 2 TABLETS BY MOUTH EVERY 8 HOURS NEEDED 180tablet 0 amLODIPine (Norvasc) 10 MG tablet TAKE 1 TABLET BY MOUTH EVERY MORNING 90 tablet 3 Ascorbic Acid (vitamin C) 500 MG tablet TAKE 1 TABLET BY MOUTH EVERY OTHER DAY IN THE MORNING 45 tablet 3 atorvastatin (Lipitor) 40 MG tablet TAKE 1 TABLET BY MOUTH AT BEDTIME 90 tablet 3 carvedilol (Coreg) 6.25 MG tablet TAKE 1 TABLET BY MOUTH TWICE DAILY IN THE MORNING AND IN THE EVENING WITH FOOD 60 tablet 1 cetirizine (ZyrTEC) 10 MG tablet TAKE 1 TABLET BY MOUTH EVERY EVENING 90 tablet 0 chlorthalidone (Hygroton) 50 MG tablet TAKE 1 TABLET BY MOUTH EVERY MORNING 90 tablet 0 fenofibrate (Triglide) 160 MG tablet TAKE 1 TABLET BY MOUTH EVERY MORNING 90 tablet 0 ferrous sulfate 325 (65 Fe) MG EC tablet TAKE 1 TABLET BY MOUTH EVERY OTHER DAY IN THE MORNING 45 tablet 3 folic acid (Folvite) 1 MG tablet TAKE 1 TABLET BY MOUTH EVERY MORNING 90 tablet 0 levETIRAcetam (Keppra) 250 MG tablet Take 250 mg by mouth 2 times daily. lisinopril 40 MG tablet TAKE 1 TABLET BY MOUTH EVERY EVENING 90 tablet 3 melatonin 3 MG tablet TAKE 1 TABLET BY MOUTH 30 TO 60 MINUTES BEFORE BEDTIME 30 tablet 0 Multiple Vitamins-Minerals (Cerovite Senior) tablet TAKE 1 TABLET BY MOUTH EVERY MORNING 90 tablet 0 omeprazole (PriLOSEC) [address] capsule TAKE 1 CAPSULE BY MOUTH EVERY MORNING BEFORE BREAKFAST 90 capsule 0 sucralfate (Carafate) 1 g tablet TAKE 1 TABLET BY MOUTH TWICE DAILY BEFORE BREAKFAST AND BEFORE SUPPER 60 tablet 1 No current facility-administered medications on file prior to visit. Problem List Items Addressed This Visit Benign paroxysmal vertigo, unspecified ear Relevant Orders Referral to ENT Bilateral tinnitus Relevant Orders Referral to ENT Resistant hypertension I will order labs patient will be contacted with results I will refer this patient to nephrology and pharmacy I did advise low-sodium diet Relevant Orders Referral to Nephrology Lipid Panel, Standard Albumin, Random Urine W/Creatinine Comprehensive Metabolic Panel Referral to Pharmacy CDTM documented in this encounter Miscellaneous Notes * Assessment & Plan Note - Batsheva Tracy MD - 07/06/2024 10:31 AM EDT Associated Problem(s): Resistant hypertension I will order labs patient will be contacted with results I will refer this patient to nephrology and pharmacy I did advise low-sodium diet documented in this encounter Plan of Treatment Scheduled Orders Name Type Priority Associated Diagnoses Orde r Schedule Lipid Panel, Standard Lab Routine Resistant hypertension Expected: 07/06/2024 (Approximate), Expires: 07/06/2025 Albumin, Random Urine W/Creatinine Lab Routine Resistant hypertension Expected: 07/06/2024 (Approximate), Expires: 07/06/2025 Comprehensive Metabolic Panel Lab Routine Resistant hypertension Expected: 07/06/2024 (Approximate), Expires: 07/06/2025 Scheduled Referrals Name Type Priority Associated Diagnoses Orde r Schedule Referral to ENT Outpatient Referral Routine Benign paroxysmal vertigo, unspecified laterality Bilateral tinnitus Expected: 07/06/2024 (Approximate), Expires: 07/06/2025 Referral to Nephrology Outpatient Referral Routine Resistant hypertension Expected: 07/06/2024 (Approximate), Expires: 07/06/2025 Referral to Pharmacy CDTM Outpatient Referral Routine Resistant hypertension Ordered: 07/06/2024 documented as of this encounter Visit Diagnoses Diagnosis Benign paroxysmal vertigo, unspecified laterality Bilateral tinnitus Resistant hypertension documented in this encounter Additional Health Concerns Assessment Noted Time PHQ-9 Depression Total Score: 0 07/07/19 25 9:25 AM EDT documented as of this encounter Care Teams Mold Cleaner Relationship Specialty Start Date End Date Batsheva Bhardwaj MD [address] [place] [address] PCP - General Family Medicine 01/07/19 documented as of this encounter
--- OUTSIDE RECORDS SUMMARY | 2024-07-06 10:55 | XMS_ITS | Encounter Summary ---
Author Organization [facility] Address [address] [place] [id number] Care Team Providers Care Agile Scrum Master Name Role Phone Batsheva Bhardwaj MD Primary Care Provide r Reason for Visit * Reason Comments Med Refill Encounter Details Date Type Department Care Team (Late st Contact Info) Description 05/24/2022 Refill [facility] MEDICINE [address] [place], [place] [phone] Isabel Mann MD [address] [place], [place] [phone] Pain Social History Tobacco Use Types Packs/Day [...] Pain Generalized pain documented in this encounter Care Teams Agile Scrum Master Relationship Specialty Start Date End Date Batsheva Bhardwaj MD [address] [place] [phone] PCP - General Family Medicine 01/07/19 [facility] 02/13/24 06/29/24 documented as of this encounter
[2024-07-06 12:06] LABS: Alanine Aminotransferase 36 U/L (0-40); Albumin Level 4.5 g/dL (3.5-5.0); Alkaline Phosphatase 89 U/L (39-117); Anion Gap 11 (12-20); Aspartate Amino Transferase 25 U/L (5-37); Bilirubin Total 0.3 mg/dL (0.0-1.0); Blood Urea Nitrogen 15 mg/dL (9-16); Calcium 9.8 mg/dL (8.4-10.2); Carbon Dioxide 26 mmol/L (22-29); Chloride 105 mmol/L (96-108); Cholesterol 263 mg/dL (<200); Estimated Glomerular Filt Rate > 60; Glucose Random 103 mg/dL (60-115); HDL Cholesterol 33 mg/dL (>40); Potassium 4.1 mmol/L (3.3-5.1); Sodium 138 mmol/L (135-145); Total Protein 7.5 g/dL (6.5-8.0); Triglycerides 699 mg/dL (<150)
[2024-07-06 12:14] LABS: Creatinine Urine 253.61 mg/dL
== END 2024-07-06 09:47 | disposition home or self-care (01) ==
LOC: HO.HHCL 09:46
PROVIDERS: Visit Provider Internal Medicine
DX: I1A.0 Resistant hypertension (principal)
CPT/HCPCS: 36415; 80053; 80061; 82043; 82570

== ENCOUNTER 2024-11-09 11:07 | Outpatient (REF) | payer OTHER, SELFPAY ==
--- OUTSIDE RECORDS SUMMARY | 2020-05-04 11:22 | XMS_ITS | Continuity of Care Document ---
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, EST PREV VISIT, NEW, AGE 40-64 Advance Directives Directive Yes / No Effective Date File Name No Information Encounters Encounter Description Practice Location Reason(s) For Visit Diagnoses Date Provider Providers Copied on Encounter [facility], [address], [place], [place], [id number], [place] tel:[phone] [place] [address] No Information 1 No Information [facility], [address], [place], [place], [id number], [place] tel:[phone] [facility] Posterior auricular lymphadenopat hy 0 No Information OFFICE/OUTPA TIENT VISIT, EST [facility], [address], [place], [place], [id number], [place] tel:[phone] [facility] prostate cancer (chief complaint)h ypertension (chief complaint) Recurrent prostate cancerScreeni ng for metabolic disorder 0 No Information OFFICE/OUTPA TIENT VISIT, EST [facility], [address], [place], [place], [id number], [place] tel:[phone] [facility] Prostate cancer (chief complaint)r ravindra (chief complaint) Chronic pruritic rash in adultElevated PSA 0 No Information OFFICE/OUTPA TIENT VISIT, EST [facility], [address], [place], [place], [id number], [place] tel:[phone] [place] [address] Follow Up of Prostate problems (chief complaint) Prostate cancerPosteri or auricular lymphadenopat hy 0 No Information OFFICE/OUTPA TIENT VISIT, EST [facility], [address], [place], [place], [id number], [place] tel:[phone] [facility] Prostate cancer (chief complaint) Prostate cancer 9 No Information OFFICE/OUTPA TIENT VISIT, EST [facility], [address], [place], [place], [id number], [place] tel:[phone] [facility] Prostate cancer (chief complaint) Prostate cancer 9 No Information [facility], [address], [place], [place], [id number], [place] tel:[phone] [place] [address] Submucosal leiomyoma of colon 9 No Information [facility], [address], [place], [place], [id number], [place] tel:[phone] [place] [address] Enlarged lymph node in neck 9 Meeta Pichardo. [address] [facility], [place], [place], [id number]. tel:[phone] OFFICE/OUTPA TIENT VISIT, EST [facility], [address], [place], [place], [id number], [place] tel:[phone] [facility] rash (chief complaint) Tinea crurisTinea pedis of both feetLymphaden opathy, periauricular S/P prostatectomy 9 No Information PREV VISIT, EST, AGE 40-64 [facility], [address], [place], [place], [id number], [place] tel:[phone] [place] [address] preventive exam (chief complaint) Encounter for adult annual physical exam w/ abnormal findingS/P prostatectomy Encounter for screening for malignant neoplasm of colonLymphade nopathy, periauricular Tinea crurisTinea pedis of both feet 9 No Information OFFICE/OUTPA TIENT VISIT, EST [facility], [address], [place], [place], [id number], [place] tel:[phone] [place] [address] rash (chief complaint) Tinea crurisVitamin D deficiency 8 No Information OFFICE/OUTPA TIENT VISIT, EST [facility], [address], [place], [place], [id number], [place] tel:[phone] [facility] rash (chief complaint) Tinea cruris 8 No Information OFFICE/OUTPA TIENT VISIT, EST [facility], [address], [place], [place], [id number], [place] tel:[phone] [place] [address] Follow Up of Wound (chief complaint) Prostate cancerVisit for wound checkS/P prostatectomy 7 No Information OFFICE/OUTPA TIENT VISIT, EST [facility], [address], [place], [place], [id number], [place] tel:[phone] [place] [address] wound check (chief complaint) Prostate cancer 7 No Information OFFICE/OUTPA TIENT VISIT, EST [facility], [address], [place], [place], [id number], [place] tel:[phone] [place] [address] f/u prostate cancer (chief complaint) Prostate cancer 7 No Information [facility], [address], [place], [place], [address], [place] tel:[phone] [place] 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 . OFFICE/OUTPA TIENT VISIT, EST [facility], [address], [place], [place], [id number], [place] tel:[phone] [place] [address] prostate problems (chief complaint) Prostate cancer 7 No Information [facility], [address], [place], [place], [id number], [place] tel:[phone] [place] [address] Elevated PSA 7 No Information [facility], [address], [place], [place], [id number], [place] tel:[phone] [place] [address] Elevated PSA 7 No Information PREV VISIT, NEW, AGE 40-64 [facility], [address], [place], [place], [id number], [place] tel:[phone] [facility] preventive exam (chief complaint) Encntr for [...] virus, 3 years or older Flulaval Quad [id number] administered Source: New Immuniza tion Record Tdap (Adacel) administered Source: New Im munization Record Payers Payer name Insurance type Covered libertarian ID Authoriza tion(s) [employer] [id number] Health Safety Net Z [id number] Health Safety Net [id number] Social History Type Description Quantity Date Captured [...] Date Complaint History Of Prese nt Illness prostate cancer (comments) on we ek 4 of radiation hypertension It is currently stable. Risk factors include male gender. The hypertension is exacerbated by nothing. Additional information: BP WNL - doing well. radiation weekly at [facility] in [place] prostate cancer The initial visi t date [...] not had LN biopsy yet. preventive exam Men's preventive visit. Patient is on a healthy diet. Marital status: . Concern(s)/Requests Detail: eating a natural diet - not exercising but working Relevant history is negative for passive smoke exposure, passive vaping exposure, alcohol use. preventive exam (comments) worri ed about lump behind R ear - there x5mo, has not changed at all never painful rash The patient pres ents for rash. [...] of last tetanus: 12/18/2016. Additional information: 12/30 [facility] robotic assisted prostatectomy 04/11 to prostate malignancy, 01/05 [facility] discharge. 01/08 (yesterday) visit w/ PCP and sent to [facility] ER for wound check/concern for infection. Records unavailable but family reports ER did not make changes. No fever/CP/SOB. Urine produced from rosado cath. wound check robotic prostate ctomy 12/30 then developed post op ileus- d/c 01/05pt given appt to see urologist 01/14/17 still [facility] on [...] the robotic prostatectomy has preop appt at [facility] 12/23/16 at 11am pt given instrcutions in [place] and very unsure of what they say as they are in [place] and pt only speaks/reads qatari prostate problems Patient does n ot a [...]
--- OUTSIDE RECORDS SUMMARY | 2024-11-09 12:40 | XMS_ITS | Encounter Summary ---
Author Organization [employer] Address [address] [facility] [address] [place] [address] Care Team Providers Care Bureau Chief Name Role Phone Batsheva Bhardwaj MD Primary Care Provide r Reason for Visit * Reason Onset Date Comments Med Refill DIGITAL MARKETING CONSULTANT Hours 12/05/2022 Martha, the pt 's DIGITAL MARKETING CONSULTANT, called regarding a request for a letter so that the pt's DIGITAL MARKETING CONSULTANT hours could be increased. The pt signed a release, authorizing her to milk pickup truck driver the letter at [facility], therefore, I informed her that he needs to call [facility] because the request needs to go through them. She verbalized understanding. Encounter Details Date Type Department Care Team (Late st Contact Info) Description 12/05/2022 Telephone [facility] MED & PEDS [address] [place], [place] [phone] Batsheva Bhardwaj MD [address] [place] [address] Med Refill; DIGITAL MARKETING CONSULTANT Hours (Martha, the pt's DIGITAL MARKETING CONSULTANT, called regarding a request for a letter so that the pt's DIGITAL MARKETING CONSULTANT hours could be increased. The pt signed a release, authorizing her to milk pickup truck driver the letter at [facility], therefore, I informed [...] Male 01/07/2022 10:36 AM EDT Sexual Orientation Straight 10/18/2024 8: 38 AM EDT Sexual Orientation Choose not to disclose 2024 8:38 AM EDT documented as of this encounter Miscellaneous Notes * Telephone Encounter - Carrie Leonardo MA - 12/05/2022 3:23 PM EDT Martha, the pt's DIGITAL MARKETING CONSULTANT, called regarding a request for a letter so that the pt's DIGITAL MARKETING CONSULTANT hours could beincreased. The pt signed a release, authorizing her to milk pickup truck driver the letter at [facility], therefore, I informed her that he needs to call [facility] because the request needs to go through them. She verbalized understanding. documented in this encounter Plan of Treatment Upcoming Encounters Date Type Department Care Team (Late st Contact Info) Description 11/19/2024 10:00 AM EDT Medication Management [facility] MEDICINE [address] [place] [address] Haroldo Pearson, PharmD [address] [place] [address] documented as of this encounter Visit Diagnoses Diagnosis Primary insomnia Persistent disorder of initiating or maintaining sleep Pain Generalized pain documented in this encounter Additional Health Concerns Assessment Noted Time PHQ-9 Depression Total Score: 0 10/01/19 23 2:04 PM EDT documented as of this encounter Care Teams Bureau Chief Relationship Specialty Start Date End Date Batsheva Bhardwaj MD [address] [place] [address] PCP - General Family Medicine 01/07/19 [facility] 02/13/24 06/29/24 [facility] 06/09/24 documented as of this encounter
--- OUTSIDE RECORDS SUMMARY | 2024-11-09 12:40 | XMS_ITS | Encounter Summary ---
Author Organization [employer] Address [address] [facility] [address] [place] [address] Care Team Providers Care Single Ending Machine Operator Name Role Phone Batsheva Bhardwaj MD Primary Care Provide r Reason for Visit * Reason Comments Med Refill Encounter Details Date Type Department Care Team (Late st Contact Info) Description 10/02/2022 Refill [facility] MED[facility]INE [address] [place] [phone] Batsheva Bhardwaj MD [address] [place] [address] Pain Social History Tobacco Use Types Packs/Day [...] as of this encounter Plan of Treatment Upcoming Encounters Date Type Department Care Team (Late st Contact Info) Description 11/19/2024 10:00 AM EDT Medication Management [facility] MED[facility]INE [address] [place] [phone] Haroldo Pearson, PharmD [address] [place] [address] documented as of this encounter Visit Diagnoses Diagnosis Pain Generalized pain documented in this encounter Additional Health Concerns Assessment Noted Time PHQ-9 Depression Total Score: 0 10/01/19 23 2:04 PM EDT documented as of this encounter Care Teams Single Ending Machine Operator Relationship Specialty Start Date End Date Batsheva Bhardwaj MD [address] [place] [address] PCP - General Family Medicine 01/07/19 [facility] 02/13/24 06/29/24 [facility] 06/09/24 documented as of this encounter
--- OUTSIDE RECORDS SUMMARY | 2024-11-09 12:40 | XMS_ITS | Encounter Summary ---
Author Organization [employer] Address [address] [facility] [address] [place] [address] Care Team Providers Care Timber Spotter Name Role Phone Batsheva Bhardwaj MD Primary Care Provide r Reason for Visit * Reason Onset Date Comments Paperwork/Forms 05/21/2023 Encounter Details Date Type Department Care Team ([facility] st Contact Info) Description 05/21/2023 Telephone [facility]INE [address] [place] [address] Batsehva Bhardwaj MD [address] [place] [address] Paperwork/Forms Social History Tobacco Use Types Packs/Day [...] t he electric, gas, oil or water [employer] threatened to shut off services in your [...] - 05/21/2023 11:42 AM EDT Tc from [facility] with [facility] calling to inform she received the plan of care documents on 05/13/23 but only received 4 pages and it should have been 5 pages . Any question please contact phone # [phone] . documented in this encounter Plan of Treatment Upcoming Encounters Date Type Department Care Team (Late st Contact Info) Description 11/19/2024 10:00 AM EDT Medication Management [facility] [address] [place] [address] Haroldo Pearson, PharmD [address] [place] [address] documented as of this encounter Visit Diagnoses Not on filedocumented in this encounter Additional Health Concerns Assessment Noted Time PHQ-9 Depression Total Score: 0 10/01/19 23 2:04 PM EDT documented as of this encounter Care Teams Timber Spotter Relationship Specialty Start Date End Date Batsheva Bhardwaj MD [address] [place] [address] PCP - General Family Medicine 01/07/19 [facility] 02/13/24 06/29/24 [facility] 06/09/24 documented as of this encounter
--- OUTSIDE RECORDS SUMMARY | 2024-11-09 12:41 | XMS_ITS | Encounter Summary ---
Author Organization [employer] Address [address] [facility] [address]t [address] Floor [place] [id number] Care Team Providers Care Geophysical Laboratory Director Name Role Phone Batsheva Bhardwaj MD Primary Care Provide r Reason for Visit * Reason Onset Date Comments Appointment Request 10/19/2024 Encounter Details Date Type Department Care Team (Late st Contact Info) Description 10/19/2024 Telephone [facility] [address] [place] [address] Batsheva Bhardwaj MD [address] [place] [address] Appointment Request Social History Tobacco Use Types Packs/Day Years [...] encounter Miscellaneous Notes * Telephone Encounter - Bob Beckwith - 10/19/2024 11:48 AM EDT Tc from didi ([facility]) requesting to r/s cx at with pharmacy. Contact didi at [phone] documented in this encounter Plan of Treatment Upcoming Encounters Date Type Department Care Team (Late st Contact Info) Description 11/19/2024 10:00 AM EDT Medication Management [facility] [address] [place] [address] Haroldo Pearson, PharmD [address] [place] [address] documented as of this encounter Visit Diagnoses Not on filedocumented in this encounter Additional Health Concerns Assessment Noted Time PHQ-9 Depression Total Score: 0 07/07/19 25 9:25 AM EDT documented as of this encounter Care Teams Geophysical Laboratory Director Relationship Specialty Start Date End Date Batsheva Bhardwaj MD [address] [place] [address] PCP - General Family Medicine 01/07/19 [facility] 06/09/24 documented as of this encounter
--- OUTSIDE RECORDS SUMMARY | 2024-11-09 12:41 | XMS_ITS | Encounter Summary ---
Author Organization [employer] Address [address] [facility] [address] [place] [address] Care Team Providers Care Jig And Fixture Builder Apprentice Name Role Phone Batsheva Bhardwaj MD Primary Care Provide r Reason for Visit * Reason Comments Med Refill Encounter Details Date Type Department Care Team ([facility] Contact Info) Description 04/07/2022 Refill [facility] [address] [place] [address] Gerda Knapp, ANP [address] [place] [address] Gastroesophageal reflux disease, unspecified whether esophagitis present [...] Encounters Date Type Department Care Team (Late Contact Info) Description 11/19/2024 10:00 AM EDT Medication Management [facility] [address] [place] [address] Haroldo Pearson, JoseD [address] [place] [address] documented as of this encounter Visit Diagnoses Diagnosis Gastroesophageal reflux disease, unspecified whether esophagitis present documented in this encounter Care Teams Jig And Fixture Builder Apprentice Relationship Specialty Start Date End Date Batsheva Bhardwaj MD [address] [place] [address] PCP - General Family Medicine 01/07/19 [facility] 02/13/24 06/29/24 [facility] 06/09/24 documented as of this encounter
--- OUTSIDE RECORDS SUMMARY | 2024-11-09 12:41 | XMS_ITS | Encounter Summary ---
Author Organization [employer] Address [address] [facility] [address] [address] Care Team Providers Care Smoke Eater Name Role Phone Batsheva Bhardwaj MD Primary Care Provide r Reason for Visit * Reason Comments Med Refill Encounter Details Date Type Department Care Team (Late st Contact Info) Description 05/24/2022 Refill [facility] [address] [place] [id number] Isabel Mann MD [address] [place] [phone] Pain Social History Tobacco Use Types Packs/Day [...] Description 11/19/2024 10:00 AM EDT Medication Management [facility] [address] [place] [phone] Haroldo Pearson, PharmD [address] [place] [address] documented as of this encounter Visit Diagnoses Diagnosis Pain Generalized pain documented in this encounter Care Teams Smoke Eater Relationship Specialty Start Date End Date Batsheva Bhardwaj MD [address] [place] [address] PCP - General Family Medicine 01/07/19 [facility] 02/13/24 06/29/24 [facility] 06/09/24 documented as of this encounter
--- OUTSIDE RECORDS SUMMARY | 2024-11-09 12:41 | XMS_ITS | Clinical Summary ---
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 08/03/19 22 Active acetaminophen (Tylenol 8 Hour) 650 MG ER tabletIndications :Pain TAKE 2 TABLETS BY MOUTH EVERY 8 HOURS NEEDED 180 tablet 07/17/19 24 Active Icosapent Ethyl (Vascepa) 1 g capsuleIndication s:High triglycerides Take 2 capsules (2 g) by mouth with breakfast and with evening meal. 120 capsule 11 07/07/19 25 026 Active amLODIPine (Norvasc) 10 MG tabletIndications :Primary hypertension TAKE 1 TABLET BY MOUTH EVERY MORNING 90 tablet 3 07/14/19 25 Active atorvastatin (Lipitor) 40 MG tabletIndications :Mixed hyperlipidemia TAKE 1 TABLET BY MOUTH AT BEDTIME 90 tablet 3 07/14/19 25 Active lisinopril 40 MG tabletIndications :Primary hypertension,Mixe d hyperlipidemia TAKE 1 TABLET BY MOUTH EVERY EVENING 90 tablet 3 07/14/19 25 Active carvedilol (Coreg) 6.25 MG tabletIndications :Essential hypertension TAKE 1 TABLET BY MOUTH TWICE DAILY IN THE MORNING AND IN THE EVENING WITH FOOD 60 tablet 1 09/14/19 25 Active sucralfate (Carafate) 1 g tabletIndications :Gastroesophageal reflux disease, unspecified whether esophagitis present TAKE 1 TABLET BY MOUTH TWICE DAILY IN THE MORNING AND IN THE EVENING WITH BREAKFAST AND WITH DINNER 60 tablet 1 09/14/19 25 Active Multiple Vitamins-Minerals (Cerovite Senior) tabletIndications :Generalized abdominal pain TAKE 1 TABLET BY MOUTH EVERY MORNING 90 tablet 09/23/19 25 Active omeprazole (PriLOSEC) [address] capsuleIndication s:Generalized abdominal pain TAKE 1 CAPSULE BY MOUTH EVERY MORNING BEFORE BREAKFAST 90 capsule 09/23/19 25 Active cetirizine (ZyrTEC) 10 MG tabletIndications :Seasonal allergies TAKE 1 TABLET BY MOUTH EVERY EVENING 90 tablet 09/23/19 25 Active chlorthalidone (Hygroton) 50 MG tabletIndications :Essential hypertension TAKE 1 TABLET BY MOUTH EVERY MORNING 90 tablet 09/23/19 25 Active ferrous sulfate 325 (65 Fe) MG EC tabletIndications :Anemia, unspecified type TAKE 1 TABLET BY MOUTH EVERY OTHER DAY IN THE MORNING 45 tablet 3 10/13/19 25 Active Ascorbic Acid (vitamin C) 500 MG tabletIndications :Anemia, unspecified type TAKE 1 TABLET BY MOUTH EVERY OTHER DAY IN THE MORNING 45 tablet 3 10/13/19 25 Active folic acid (Folvite) 1 MG tabletIndications :Hypertriglycerid emia TAKE 1 TABLET BY MOUTH EVERY MORNING 90 tablet 10/22/19 25 Active fenofibrate (Triglide) 160 MG tabletIndications :Hypertriglycerid emia TAKE 1 TABLET BY MOUTH EVERY MORNING 90 tablet 10/22/19 25 Active melatonin 3 MG tabletIndications :Primary insomnia TAKE 1 TABLET BY MOUTH 30 TO 60 MINUTES BEFORE BEDTIME 30 tablet 2 10/22/19 25 Active ferrous sulfate 325 (65 Fe) MG EC tabletIndications :Anemia, unspecified type TAKE 1 TABLET BY MOUTH EVERY OTHER DAY IN THE MORNING 45 tablet 3 10/22/19 24 025 Discontinued Ascorbic Acid (vitamin C) 500 MG tabletIndications :Anemia, unspecified type TAKE 1 TABLET BY MOUTH EVERY OTHER DAY IN THE MORNING 45 tablet 3 10/22/19 24 025 Discontinued folic acid (Folvite) 1 MG tabletIndications :Hypertriglycerid emia TAKE 1 TABLET BY MOUTH EVERY MORNING 90 tablet 07/14/19 25 025 Discontinued fenofibrate (Triglide) 160 MG tabletIndications :Hypertriglycerid emia TAKE 1 TABLET BY MOUTH EVERY MORNING 90 tablet 07/14/19 25 025 Discontinued melatonin 3 MG tabletIndications :Primary insomnia TAKE 1 TABLET BY MOUTH 30 TO 60 MINUTES BEFORE BEDTIME 30 tablet 09/23/19 25 025 Discontinued Active Problems Problem Noted Date Diagnosed Date Benign paroxysmal vertigo, unspecified ear 07/06 Bilateral tinnitus 07/06/2024 Assessment & Plan (09/17/2024 4:34 PM EDT): Patient already referred to ENT, he has an appointment on February 2025, today I also refer him to audiology Resistant hypertension 07/06/2024 Assessment & Plan (07/06/2024 [...] 09/25/2022 Essential hypertension 09/25/2022 Assessment & Plan (09/17/2024 4:33 PM EDT): I advised: - Aerobic exercise to reduce BP. Initial goal of 30 min walk 3-5x/week. Increase as tolerated. - low-sodium diet (goal: <2g/day) and heart healthy diet such as DASH to reduce BP and prevent ASCVD. - Home BP monitoring 1-2 x day with goal of <140/90. - Seek immediate medical attention for chest pain, palpitations, SOB, syncope, or sudden changes in mental status. - Do not change or discontinue current prescriptions without first consulting health care provider Assessment & Plan (11/08/2022 4:19 PM EDT): [...] Encounters Date Type Department Care Team Description 10/20/2024 Refill [facility] [address] [place] [address] Batsheva Bhardwaj MD Hypertriglyceridemia; Primary insomnia 10/19/2024 Telephone [facility] [address] [place] [address] Batsheva Bhardwaj MD Appointment Request 10/12/2024 Refill [facility] [address] [place] [address] Batsheva Bhardwaj MD Anemia, unspecified type 09/22/2024 Refill [facility] [address] [place] [address] Batsheva Bhardwaj MD Primary insomnia 09/22/2024 Refill [facility] [address] [place] [address] Mell Barry MD Generalized abdominal pain; Seasonal allergies; Essential hypertension; Primary insomnia 09/20/2024 Telephone [facility] [address] [place] [address] Batsheva Bhardwaj MD 09/17/2024 10:00 AM EDT Office Visit [facility] [address] [place] [address] Batsheva Bhardwaj MD Essential hypertension (Primary Dx); Bilateral tinnitus; Resistant hypertension 09/17/2024 Travel 09/16/2024 Telephone [facility] [address] [place] [address] Batsheva Bhardwaj MD Chart Prep 09/11/2024 Refill [facility] [address] [place] [address] Batsheva Bhardwaj MD Essential hypertension; Gastroesophageal reflux disease, unspecified whether esophagitis present 09/08/2024 Patient Outreach [facility] [address] [place] [address] Batsheva Bhardwaj MD Pre-visit Planning (SDOH screening completed on 07/06/2024) from Last 3 Months Immunizations Immunization Administration Dates Next Due Pneumococcal Conjugate PCV [...] not to disclose 2024 8:38 AM EDT Last Filed Vital Signs Vital Sign Reading Time Taken Comments Blood Pressure 168/86 09/17/2024 10:38 AM EDT Pulse 83 09/17/2024 10:10 AM EDT Temperature 36.5 C (97.7 F) 09/17/2024 10:10 AM EDT Respiratory Rate 15 09/17/2024 10:10 AM EDT Oxygen Saturation 99% 09/17/2024 10:10 AM EDT Inhaled Oxygen Concentration - - Weight 95.3 kg (210 lb) 09/17/2024 10:10 AM EDT Height 175.3 cm (5' 9 ) 09/17/2024 10:10 AM EDT Body Mass Index 31.01 09/17/2024 10:10 AM EDT Plan of Treatment Upcoming Encounters Date Type Department Care Team (Late st Contact Info) Description 11/19/2024 10:00 AM EDT Medication Management [facility] [address] [place] [address] Haroldo Pearson, PharmD [address] [place] [address] Health Maintenance Due Date Last Done Comments CT Colonography 1953 Colonoscopy 1953 Colorectal Cancer Screening 1953 FIT DNA/Cologuard 1953 FIT 1953 FOBT 1955 Sigmoidoscopy 1953 Hepatitis C Screening 08/21/1971 DTaP/Tdap/Td Vaccines (1 - Tdap) 1972 Zoster Vaccines (1 of 2) 08/21/2003 Pneumococcal Vaccine: 50+ Years (2 of 2 - PPSV23) 03/04/2019 01/07/2019 COVID-19 Vaccine (1 - 2023- season) 2024 Influenza Vaccine (#1) 2024 Depression Screening 07/06/2025 07/06/2024, 07/07/19 25 SDOH Screening 07/06/2025 07/06/2024 Alcohol/Substance Use Screening 09/17/2025 09/17/2024 Tobacco Screening 09/17/2025 09/17/2024 RSV Patients and Patients Aged 60 years or older (1 - 1-dose 75+ series) 2028 Lipid Panel 07/06/2029 07/06/2024, 09/08, 05/15/2021, Additional history exists HIB Vaccines Aged Out No longer eligi [...] patient's age to complete this topic Meningococcal B Vaccine Aged Out No l onger eligible based on patient's age to complete [...] Associated Diagnosis Comments LIPID PANEL, STANDARD Routine 07/06/2024 9:52 AM EDT Resistant hypertension from Last 3 Months or Most Recently Relevant to Health Maintenance Results * (ABNORMAL) Lipid Panel, Standard (07/06/2024 9:52 AM EDT) Triglycerides 699(H) <150 mg/dL [facility] Comment:Desirable Triglyceri de: less than 150 mg/dLBorderline High Triglyceride 150-199 mg/dLHigh Triglyceride: 200-499 mg/dLVery High Triglyceride: greater than or equal to 5OO mg/dL Cholesterol 263(H) <200 mg/dL [facility] Comment:Desirable Cholestero l: less than 200 mg/dLBorderline High Cholesterol: 200-239 mg/dLHigh Cholesterol: greater than 239 mg/dL LDL Cholesterol Calculated TNP <100 mg/dL [facility] Comment:Unable to calculate the LDL. The formula of Friedwald,Pimentel, and Thai is only valid if the triglycerides areless than 400 mg/dl. HDL Cholesterol 33(L) >40 mg/dL [facility] Comment:Desirable HDL: great er than 40 mg/dL Note: This HDL assay may give artificially low results in patients with liver disease. Blood Venous blood specimen / Unknown 07/06/2024 9:52 AM EDT 07/06/2024 11:17 AM EDT us Batsheva Tracy MD LAB BLOOD ORDERABLES Final Result [facility] [address] [place] [address] [phone] from Last 3 Months or Most Recently Relevant to Health Maintenance Insurance [facility] OPTIONS (HMO D-SNP) [place] [id number] Care Teams Fabricator Industrial Furnace Relationship Specialty Start Date End Date Batsheva Bhardwaj MD [address] [place] [address] PCP - General Family Medicine 01/07/19 [facility] 06/09/24
== END 2024-11-09 11:08 | disposition home or self-care (01) ==
LOC: HO.SH 11:07
PROVIDERS: Visit Provider Internal Medicine
DX: Z01.118 Encounter for examination of ears and hearing with other abnormal findings (principal); H90.3 Sensorineural hearing loss, bilateral; H93.13 Tinnitus, bilateral
CPT/HCPCS: 92557; 92567

== ENCOUNTER 2024-11-26 09:37 | Outpatient (AMB) | payer OTHER, SELFPAY ==
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
--- OUTSIDE RECORDS SUMMARY | 2024-11-26 10:14 | XMS_ITS | Encounter Summary ---
Author Organization [employer] Address [address] [facility] [place] [address] Care Team Providers Care Real Estate Broker Name Role Phone Batsheva Bhardwaj MD Primary Care Provide r Reason for Visit * Reason Comments Med Refill Encounter Details Date Type Department Care Team (Late st Contact Info) Description 05/24/2022 Refill [facility] [address] [place] [phone] Isabel Mann MD [address] [place] [id number] Pain Social History Tobacco Use Types Packs/Day [...] Care Team (Late st Contact Info) Description 12/03/2024 11:30 AM EDT Medication Management [facility] [address] [place] [phone] Haroldo Pearson, PharmD [address] [place] [address] documented as of this encounter Visit Diagnoses Diagnosis Pain Generalized pain documented in this encounter Care Teams Real Estate Broker Relationship Specialty Start Date End Date Batsheva Bhardwaj MD [address] [place] [address] PCP - General Family Medicine 01/07/[address] [facility] 02/13/24 06/29/[address] [facility] 06/09/24 documented as of this encounter
--- OUTSIDE RECORDS SUMMARY | 2024-11-26 10:14 | XMS_ITS | Clinical Summary ---
Author Organization [employer] Address [address] [facility] 7t [place] [address] Care Team Providers Care Professor Of Archaeology Name Role Phone Batsheva Bhardwaj MD Primary [...] EVENING 90 tablet 3 07/14/19 25 Active Multiple Vitamins-Minerals (Cerovite Senior) tabletIndications [...] BEDTIME 30 tablet 2 10/22/19 25 Active carvedilol (Coreg) 6.25 MG tabletIndications :Essential hypertension TAKE 1 TABLET BY MOUTH TWICE DAILY IN THE MORNING AND IN THE EVENING WITH FOOD 60 tablet 1 11/13/19 25 Active sucralfate (Carafate) 1 g tabletIndications :Gastroesophageal reflux disease, unspecified whether esophagitis present TAKE 1 TABLET BY MOUTH TWICE DAILY IN THE MORNING AND IN THE EVENING WITH FOOD 60 tablet 1 11/13/19 25 Active carvedilol (Coreg) 6.25 MG tabletIndications :Essential hypertension TAKE 1 TABLET BY MOUTH TWICE DAILY IN THE MORNING AND IN THE EVENING WITH FOOD 60 tablet 1 09/14/19 25 025 Discontinued sucralfate (Carafate) 1 g tabletIndications :Gastroesophageal reflux disease, unspecified whether esophagitis present TAKE 1 TABLET BY MOUTH TWICE DAILY IN THE MORNING AND IN THE EVENING WITH BREAKFAST AND WITH DINNER 60 tablet 1 09/14/19 25 025 Discontinued Active Problems Problem Noted [...] Encounters Date Type Department Care Team Description 11/12/2024 Refill [facility] [address] [place] [address] Batsheva Bhardwaj MD Essential hypertension; Gastroesophageal reflux disease, unspecified whether esophagitis present 10/20/2024 Refill [facility] [address] [place] [address] Batsheva Bhardwaj MD Hypertriglyceridemia; Primary insomnia 10/19/2024 Telephone [facility] [address] [place] [address] Batsheva Bhardwaj MD Appointment Request 10/12/2024 Refill [facility] [address] [place] [address] Batsheva Bhardwaj MD Anemia, unspecified type 09/22/2024 Refill [facility] [address] [place] [address] Batsheva Bhardwaj MD Primary insomnia 09/22/2024 Refill [facility] [address] [place] [address] Mell Barry MD Generalized abdominal pain; Seasonal allergies; Essential hypertension; Primary insomnia 09/20/2024 Telephone [facility] [address] [place] [address] Batsheva Bhardwaj MD 09/17/2024 10:00 AM EDT Office Visit [facility] [address] [place] [address] Batsheva Bhardwaj MD Essential hypertension (Primary Dx); Bilateral tinnitus; Resistant hypertension 09/17/2024 Travel 09/16/2024 Telephone [facility] [address] [place] [address] Batsheva Bhardwaj MD Chart Prep 09/11/2024 Refill [facility] [address] [place] [address] Batsheva Bhardwaj MD Essential hypertension; Gastroesophageal reflux disease, unspecified whether esophagitis present 09/08/2024 Patient Outreach [facility] [address] [place] [address] Batsheva Bhardwaj MD Pre-visit Planning (SDOH screening [...] Description 12/03/2024 11:30 AM EDT Medication Management [facility] [address] [place] [address] Haroldo Pearson, PharmD [address] [place] [address] Health Maintenance Due Date Last Done Comments CT Colonography 1953 Colonoscopy 1955 Colorectal Cancer Screening 1955 FIT DNA/Cologuard 1953 FIT 1953 FOBT 1955 Sigmoidoscopy 1955 Hepatitis C Screening 08/21/1971 DTaP/Tdap/Td Vaccines (1 - Tdap) 1972 Zoster Vaccines (1 of 2) 08/21/2003 Pneumococcal Vaccine: 50+ Years (2 of 2 - PPSV23) 03/04/2019 01/07/2019 COVID-19 Vaccine (1 - season) 2024 Influenza Vaccine (#1) 2024 Depression [...] Procedure Name Priority Date/Time Associated Diagnosis Comments AMB REFERRAL TO AUDIOLOGY Routine 11/09/2024 Bilateral tinnitus LIPID PANEL, STANDARD Routine 07/06/2024 9:52 AM EDT Resistant hypertension from Last 3 Months or Most Recently Relevant to Health Maintenance Results * Referral to Audiology (11/09/2024) us Batsheva Tracy MD OUTPATIENT REFERRAL O RDERABLES Final Result * (ABNORMAL) Lipid Panel, Standard (07/06/2024 9:52 AM EDT) Triglycerides 699(H) <150 mg/dL [facility] Comment:Desirable Triglyceri de: less than 150 mg/dLBorderline High Triglyceride 150-199 mg/dLHigh Triglyceride: 200-499 mg/dLVery High Triglyceride: greater than or equal to 5OO mg/dL Cholesterol 263(H) <200 mg/dL [facility] Comment:Desirable Cholestero l: less than 200 mg/dLBorderline High Cholesterol: 200-239 mg/dLHigh Cholesterol: greater than 239 mg/dL LDL Cholesterol Calculated TNP <100 mg/dL [facility] Comment:Unable to calculate the LDL. The formula of Friedwald,Pimentel, and Thai is only valid if the triglycerides areless than 400 mg/dl. HDL Cholesterol 33(L) >40 mg/dL [facility] Comment:Desirable HDL: great er than 40 mg/dL Note: This HDL assay may give artificially low results in patients with liver disease. Blood Venous blood specimen / Unknown 07/06/2024 9:52 AM EDT 07/06/2024 11:17 AM EDT us Batsheva Tracy MD LAB BLOOD ORDERABLES Final Result [facility] [address] [place] [address] [phone] from Last 3 Months or Most Recently Relevant to Health Maintenance Insurance [facility] [employer] OPT[employer] (HMO D-SNP) [place] [id number] Care Teams Professor Of Archaeology Relationship Specialty Start Date End Date Batsheva Bhardwaj MD [address] [place] [address] PCP - General Family Medicine 01/07/19 [facility] 06/09/24
--- OUTSIDE RECORDS SUMMARY | 2024-11-26 10:14 | XMS_ITS | Encounter Summary ---
Author Organization [employer] Address [address] [facility] [address] h Floor [place] [id number] Care Team Providers Care Airplane Flight Attendant Name Role Phone Batsheva Bhardwaj MD Primary Care Provide r Reason for Visit * Reason Onset Date Comments Appointment Request 10/19/2024 Encounter Details Date Type Department Care Team (Late st Contact Info) Description 10/19/[address] [facility] [address] [place] [address] Batsheva Bhardwaj MD [address] [place] [address] Appointment Request Social History Tobacco Use Types [...] 10/19/2024 11:48 AM EDT Tc from didi ([facility]) requesting to r/s cx at with pharmacy. Contact didi at [phone] documented in this encounter Plan of Treatment Upcoming Encounters Date Type Department Care Team (Late st Contact Info) Description 12/03/2024 11:30 AM EDT Medication Management [facility] [address] [place] [address] Haroldo Pearson, PharmD [address] [place] [address] documented as of this encounter Visit Diagnoses Not on filedocumented in this encounter Additional Health Concerns Assessment Noted Time PHQ-9 Depression Total Score: 0 07/07/19 25 9:25 AM EDT documented as of this encounter Care Teams Airplane Flight Attendant Relationship Specialty Start Date End Date Batsheva Bhardwaj MD [address] [place] [address] PCP - General Family Medicine 01/07/19 [facility] 06/09/24 documented as of this encounter
--- OUTSIDE RECORDS SUMMARY | 2024-11-26 10:14 | XMS_ITS | Encounter Summary ---
Author Organization [employer] Address [address] [place] [address] [place], [place] [address] Care Team Providers Care Dog Catcher Name Role Phone Batsheva Bhardwaj MD Primary Care Provide r Reason for Visit * Reason Comments Med Refill Encounter Details Date Type Department Care Team (Late st Contact Info) Description 10/02/2022 Refill [facility] [address] [place] [address] Batsheva Bhardwaj MD [address] [place] [address] Pain Social History Tobacco Use Types Packs/Day [...] Description 12/03/2024 11:30 AM EDT Medication Management [facility] [address] [place] [address] Haroldo Pearson, PharmD [address] [place] [address] documented as of this encounter Visit Diagnoses Diagnosis Pain Generalized pain documented in this encounter Additional Health Concerns Assessment Noted Time PHQ-9 Depression Total Score: 0 10/01/19 23 2:04 PM EDT documented as of this encounter Care Teams Dog Catcher Relationship Specialty Start Date End Date Batsheva Bhardwaj MD [address] [place] [address] PCP - General Family Medicine 01/07/19 [facility] 02/13/24 06/29/24 [facility] 06/09/24 documented as of this encounter
--- OUTSIDE RECORDS SUMMARY | 2024-11-26 10:14 | XMS_ITS | Encounter Summary ---
Author Organization [employer] Address [address] [facility] [address] 7t [place] [address] Care Team Providers Care Tube Test Technician Name Role Phone Batsheva Bhardwaj MD Primary Care Provide r Reason for Visit * Reason Onset Date Comments Paperwork/Forms 05/21/2023 Encounter Details Date Type Department Care Team ([facility] st Contact Info) Description 05/21/2023 Telephone [facility] [address] [place] [address] Batsheva Bhardwaj MD [address] [place] [address] Paperwork/Forms Social History Tobacco Use Types Packs/Day [...] t he electric, gas, oil or water [employer] threatened to shut off services in your [...] EDT Tc from [facility] calling to inform she received the plan of care documents on 05/13/23 but only received 4 pages and it should have been 5 pages . Any question please contact phone # [phone] . documented in this encounter Plan of Treatment Upcoming Encounters Date Type Department Care Team (Late st Contact Info) Description 12/03/2024 11:30 AM EDT Medication Management [facility] [address] [place] [address] Haroldo Pearson, PharmD [address] [place] [address] documented as of this encounter Visit Diagnoses Not on filedocumented in this encounter Additional Health Concerns Assessment Noted Time PHQ-9 Depression Total Score: 0 10/01/19 23 2:04 PM EDT documented as of this encounter Care Teams Tube Test Technician Relationship Specialty Start Date End Date Batsheva Bhardwaj MD [address] [place], [place] [phone] PCP - General Family Medicine 01/07/19 [facility] 02/13/24 06/29/24 [facility] 06/09/24 documented as of this encounter
--- OUTSIDE RECORDS SUMMARY | 2024-11-26 10:14 | XMS_ITS | Encounter Summary ---
Author Organization [employer] Address [address] [facility] [address] [place] [address] Care Team Providers Care Branch Lead Name Role Phone Batsheva Bhardwaj MD Primary Care Provide r Reason for Visit * Reason Onset Date Comments Med Refill GOVERNMENT AFFAIRS RESEARCHER Hours 12/05/2022 Martha, the pt 's GOVERNMENT AFFAIRS RESEARCHER, called regarding a request for a letter so that the pt's GOVERNMENT AFFAIRS RESEARCHER hours could be increased. The pt signed a release, authorizing her to orange picking supervisor the letter at [facility], therefore, I informed her that he needs to call [facility] because the request needs to go through them. She verbalized understanding. Encounter Details Date Type Department Care Team (Late st Contact Info) Description 12/05/2022 Telephone [facility] PEDS [address] [place], [place] [phone] Batsheva Bhardwaj MD [address] [place] [address] Med Refill; GOVERNMENT AFFAIRS RESEARCHER Hours (Martha, the pt's GOVERNMENT AFFAIRS RESEARCHER, called regarding a request for a letter so that the pt's GOVERNMENT AFFAIRS RESEARCHER hours could be increased. The pt signed a release, authorizing her to orange picking supervisor the letter at [facility], therefore, I informed [...] 12/05/2022 3:23 PM EDT Martha, the pt's GOVERNMENT AFFAIRS RESEARCHER, called regarding a request for a letter so that the pt's GOVERNMENT AFFAIRS RESEARCHER hours could beincreased. The pt signed a release, authorizing her to orange picking supervisor the letter at [facility], therefore, I informed her that he needs to call [facility] because the request needs to go through them. She verbalized understanding. documented in this encounter Plan of Treatment Upcoming Encounters Date Type Department Care Team (Late st Contact Info) Description 12/03/2024 11:30 AM EDT Medication Management [facility] [address] [place] [address] Haroldo Pearson, PharmD [address] [place] [address] documented as of this encounter Visit Diagnoses Diagnosis Primary insomnia Persistent disorder of initiating or maintaining sleep Pain Generalized pain documented in this encounter Additional Health Concerns Assessment Noted Time PHQ-9 Depression Total Score: 0 10/01/19 23 2:04 PM EDT documented as of this encounter Care Teams Branch Lead Relationship Specialty Start Date End Date Batsheva Bhardwaj MD [address] [place] [address] PCP - General Family Medicine 01/07/19 [facility] 02/13/24 06/29/24 [facility] 06/09/24 documented as of this encounter
--- OUTSIDE RECORDS SUMMARY | 2024-11-26 10:14 | XMS_ITS | Encounter Summary ---
Author Organization [employer] Address [address] [facility] [address] [place] [address] Care Team Providers Care Web Search Evaluator Name Role Phone Batsheva Bhardwaj MD Primary Care Provide r Reason for Visit * Reason Comments Med Refill Encounter Details Date Type Department Care Team ([facility] Contact Info) Description 04/07/2022 Refill [facility]S [address] [place] [address] Gerda Knapp, ANP [address] [place] [address] Gastroesophageal reflux disease, unspecified whether esophagitis present [...] Department Care Team (Late Contact Info) Description 12/03/2024 11:30 AM EDT Medication Management [facility] MED[facility]INE [address] [place] [address] Haroldo Pearson, JoseD [address] [place] [address] documented as of this encounter Visit Diagnoses Diagnosis Gastroesophageal reflux disease, unspecified whether esophagitis present documented in this encounter Care Teams Web Search Evaluator Relationship Specialty Start Date End Date Batsheva Bhardwaj MD [address] [place] [address] PCP - General Family Medicine 01/07/19 [facility] 02/13/24 06/29/24 [facility] 06/09/24 documented as of this encounter
== END 2024-11-26 10:05 | disposition home or self-care (01) ==
LOC: HO.HSM 09:38
PROVIDERS: PCP Internal Medicine; Visit Provider Registered Nurse
DX: G40.909 Epilepsy, unspecified, not intractable, without status epilepticus (principal); Z86.79 Personal history of other diseases of the circulatory system; G93.89 Other specified disorders of brain; H93.13 Tinnitus, bilateral
CPT/HCPCS: 99214

== ENCOUNTER → 2024-11-26 09:37 | Outpatient (BNVA) | payer OTHER, SELFPAY | PROVIDERS: PCP Internal Medicine; Visit Provider Registered Nurse | DX: G40.909 Epilepsy, unspecified, not intractable, without status epilepticus (principal); H93.13 Tinnitus, bilateral; Z86.79 Personal history of other diseases of the circulatory system; G93.89 Other specified disorders of brain | CPT/HCPCS: 99212 ==

== ENCOUNTER 2024-12-07 12:57 | Outpatient (REF) | payer OTHER, SELFPAY ==
--- OUTSIDE RECORDS SUMMARY | 2020-05-04 11:22 | XMS_ITS | Continuity of Care Document ---
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, EST PREV VISIT, NEW, AGE 40-64 Advance Directives Directive Yes / No Effective Date File Name No Information Encounters Encounter Description Practice Location Reason(s) For Visit Diagnoses Date Provider Providers Copied on Encounter [facility], [address], [place], [place], [id number], [place] tel:[phone] [place] [address] No Information 1 No Information [facility], [address], [place], [place], [id number], [place] tel:[phone] [facility] Posterior auricular lymphadenopat hy 0 No Information OFFICE/OUTPA TIENT VISIT, EST [facility], [address], [place], [place], [id number], [place] tel:[phone] [facility] prostate cancer (chief complaint)h ypertension (chief complaint) Recurrent prostate cancerScreeni ng for metabolic disorder 0 No Information OFFICE/OUTPA TIENT VISIT, EST [facility], [address], [place], [place], [id number], [place] tel:[phone] [facility] Prostate cancer (chief complaint)r ravindra (chief complaint) Chronic pruritic rash in adultElevated PSA 0 No Information OFFICE/OUTPA TIENT VISIT, EST [facility], [address], [place], [place], [id number], [place] tel:[phone] [place] [address] Follow Up of Prostate problems (chief complaint) Prostate cancerPosteri or auricular lymphadenopat hy 0 No Information OFFICE/OUTPA TIENT VISIT, EST [facility], [address], [place], [place], [id number], [place] tel:[phone] [facility] Prostate cancer (chief complaint) Prostate cancer 9 No Information OFFICE/OUTPA TIENT VISIT, EST [facility], [address], [place], [place], [id number], [place] tel:[phone] [facility] Prostate cancer (chief complaint) Prostate cancer 9 No Information [facility], [address], [place], [place], [id number], [place] tel:[phone] [place] [address] Submucosal leiomyoma of colon 9 No Information [facility], [address] [facility] [facility] [address], [place], [place], [id number], [place] tel:[phone] [place] [address] Enlarged lymph node in neck 9 Meeta Pichardo. [address] [facility], [place], [place], [id number]. tel:[phone] OFFICE/OUTPA TIENT VISIT, EST [facility], [address] [facility] [facility], [place], [place], [id number], [place] tel:[phone] [facility] rash (chief complaint) Tinea crurisTinea pedis of both feetLymphaden opathy, periauricular S/P prostatectomy 9 No Information PREV VISIT, EST, AGE 40-64 [facility], [address] [facility] [facility] [address], [place], [place], [address], [place] tel:[phone] [place] [address] preventive exam (chief complaint) Encounter for adult annual physical exam w/ abnormal findingS/P prostatectomy Encounter for screening for malignant neoplasm of colonLymphade nopathy, periauricular Tinea crurisTinea pedis of both feet 9 No Information OFFICE/OUTPA TIENT VISIT, EST [facility], [address], [place], [place], [id number], [place] tel:[phone] [place] [address] rash (chief complaint) Tinea crurisVitamin D deficiency 8 No Information OFFICE/OUTPA TIENT VISIT, EST [facility], [address], [place], [place], [address], [place] tel:[phone] [facility] rash (chief complaint) Tinea cruris 8 No Information OFFICE/OUTPA TIENT VISIT, EST [facility], [address], [place], [place], [id number], [place] tel:[phone] [place] [address] Follow Up of Wound (chief complaint) Prostate cancerVisit for wound checkS/P prostatectomy 7 No Information OFFICE/OUTPA TIENT VISIT, EST [facility], [address], [place], [place], [id number], [place] tel:[phone] [place] [address] wound check (chief complaint) Prostate cancer 7 No Information OFFICE/OUTPA TIENT VISIT, EST [facility], [address], [place], [place], [id number], [place] tel:[phone] [place] [address] f/u prostate cancer (chief complaint) Prostate cancer 7 No Information [facility], [address], [place], [place], [address], [place] tel:[phone] [place] [employer]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 . OFFICE/OUTPA TIENT VISIT, EST [facility], [address], [place], [place], [id number], [place] tel:[phone] [place] [address] prostate problems (chief complaint) Prostate cancer 7 No Information [facility], [address], [place], [place], [address], [place] tel:[phone] [place] [address] Elevated PSA 7 No Information [facility], [address], [place], [place], [id number], [place] tel:[phone] [place] [address] Elevated PSA 7 No Information PREV VISIT, NEW, AGE 40-64 [facility], [address], [place], [place], [id number], [place] tel:[phone] [facility] preventive exam (chief complaint) Encntr for [...] virus, 3 years or older Flulaval Quad [id number] administered Source: New Immuniza tion Record Tdap (Adacel) administered Source: New Im munization Record Payers Payer name Insurance type Covered green party ID Authoriza tion(s) [employer] [id number] Health Safety Net Z [id number] Health Safety Net [id number] Social History Type Description Quantity Date Captured [...] WNL - doing well. radiation weekly at [facility] in [place] prostate cancer The initial visi t date [...] of last tetanus: 12/18/2016. Additional information: 12/30 [facility] robotic assisted prostatectomy 04/11 to prostate malignancy, 01/05 [facility] discharge. 01/08 (yesterday) visit w/ PCP and sent to [facility] ER for wound check/concern for infection. Records unavailable but family reports ER did not make changes. No fever/CP/SOB. Urine produced from rosado cath. wound check robotic prostate ctomy 12/30 then developed post op ileus- d/c 01/05pt given appt to see urologist 01/14/17 still [facility]r [facility] on [...] the robotic prostatectomy has [facility]op appt [facility] 12/23/16 at 11am pt given instrcutions in italian and very unsure of what they say as they are in italian and pt only speaks/reads north [place]orean prostate problems Patient does n ot a [...]
--- OUTSIDE RECORDS SUMMARY | 2024-12-07 14:06 | XMS_ITS | Encounter Summary ---
Author Organization [employer] Address [address] [facility] [address] [place] [address] Care Team Providers Care Bottom Steep Tender Name Role Phone Batsheva Bhardwaj MD Primary Care Provide r Reason for Visit * Reason Comments Med Refill Encounter Details Date Type Department Care Team (Late st Contact Info) Description 10/02/2022 Refill [facility]INE [address] [place] [phone] Batsheva Bhardwaj MD [address] [place] [address] Pain Social History Tobacco Use Types Packs/Day [...] Care Team (Late st Contact Info) Description 12/31/2024 11:30 AM EDT Medication Management [facility] MEDICINE [address] [place] [address] Haroldo Pearson, PharmD [address] [place] [address] documented as of this encounter Visit Diagnoses Diagnosis Pain Generalized pain documented in this encounter Additional Health Concerns Assessment Noted Time PHQ-9 Depression Total Score: 0 10/01/19 23 2:04 PM EDT documented as of this encounter Care Teams Bottom Steep Tender Relationship Specialty Start Date End Date Batsheva Bhardwaj MD [address] [place] [address] PCP - General Family Medicine 01/07/19 [facility] 02/13/24 06/29/24 [facility] 06/09/24 documented as of this encounter
--- OUTSIDE RECORDS SUMMARY | 2024-12-07 14:06 | XMS_ITS | Encounter Summary ---
Author Organization [employer] Address [address] [facility] [address] [place] [address] Care Team Providers Care Inside Wireman Name Role Phone Batsheav Bhardwaj MD Primary Care Provide r Reason for Visit * Reason Onset Date Comments Med Refill MANAGEMENT NURSE RN Hours 12/05/2022 Martha, the pt 's MANAGEMENT NURSE RN, called regarding a request for a letter so that the pt's MANAGEMENT NURSE RN hours could be increased. The pt signed a release, authorizing her to cloth picker the letter at [facility], therefore, I informed her that he needs to call [facility] because the request needs to go through them. She verbalized understanding. Encounter Details Date Type Department Care Team (Late st Contact Info) Description 12/05/2022 Telephone [facility] & PEDS [address] [place], [place] [phone] Batsheva Bhardwaj MD [address] [place] [address] Med Refill; MANAGEMENT NURSE RN Hours (Martha, the pt's MANAGEMENT NURSE RN, called regarding a request for a letter so that the pt's MANAGEMENT NURSE RN hours could be increased. The pt signed a release, authorizing her to cloth picker the letter at [facility], therefore, I [...] 12/05/2022 3:23 PM EDT Martha, the pt's MANAGEMENT NURSE RN, called regarding a request for a letter so that the pt's MANAGEMENT NURSE RN hours could beincreased. The pt signed a release, authorizing her to cloth picker the letter at [facility], therefore, I informed her that he needs to call [facility] because the request needs to go through them. She verbalized understanding. documented in this encounter Plan of Treatment Upcoming Encounters Date Type Department Care Team (Late st Contact Info) Description 12/31/2024 11:30 AM EDT Medication Management [facility]ICINE [address] [place] [address] Haroldo Pearson, PharmD [address] [place] [address] documented as of this encounter Visit Diagnoses Diagnosis Primary insomnia Persistent disorder of initiating or maintaining sleep Pain Generalized pain documented in this encounter Additional Health Concerns Assessment Noted Time PHQ-9 Depression Total Score: 0 10/01/19 23 2:04 PM EDT documented as of this encounter Care Teams Inside Wireman Relationship Specialty Start Date End Date Batsheva Bhardwaj MD [address] [place] [address] PCP - General Family Medicine 01/07/[address] [facility] 02/13/24 06/29/[address] [facility] 06/09/24 documented as of this encounter
--- OUTSIDE RECORDS SUMMARY | 2024-12-07 14:06 | XMS_ITS | Encounter Summary ---
Author Organization [employer] Address [address] [facility] 7t h Floor [place] [id number] Care Team Providers Care Chief Cook Name Role Phone Batsheva Bhardwaj MD Primary Care Provide r Reason for Visit * Reason Onset Date Comments Appointment Request 10/19/2024 Encounter Details Date Type Department Care Team (Late st Contact Info) Description 10/19/2024 Telephone [facility] [address] [place] [address] Batsheva Bhardwaj MD [address] [place] [address] Appointment Request Social History Tobacco Use Types [...] 10/19/2024 11:48 AM EDT [facility] requesting to r/s cx at with pharmacy. Contact didi at [phone] documented in this encounter Plan of Treatment Upcoming Encounters Date Type Department Care Team (Late st Contact Info) Description 12/31/2024 11:30 AM EDT Medication Management [facility] [address] [place] [address] Haroldo Pearson, PharmD [address] [place] [address] documented as of this encounter Visit Diagnoses Not on filedocumented in this encounter Additional Health Concerns Assessment Noted Time PHQ-9 Depression Total Score: 0 07/07/19 25 9:25 AM EDT documented as of this encounter Care Teams Chief Cook Relationship Specialty Start Date End Date Batsheva Bhardwaj MD [address] [place] [address] PCP - General Family Medicine 01/07/19 [facility] 06/09/24 documented as of this encounter
--- OUTSIDE RECORDS SUMMARY | 2024-12-07 14:06 | XMS_ITS | Encounter Summary ---
Author Organization [employer] Address [address] [facility] [place] [address] Care Team Providers Care Process Mechanic Name Role Phone Batsheva Bhardwaj MD Primary Care Provide r Encounter Details Date Type Department Care Team (Latest Contact Info) Description 12/03/2024 Travel Social History Tobacco Use Types Packs/Day Years [...] Description 12/31/2024 11:30 AM EDT Medication Management [facility] MED[facility]INE [address] [place] [address] Haroldo Pearson, PharmD [address] [place] [address] documented as of this encounter Visit Diagnoses Not on filedocumented in this encounter Additional Health Concerns Assessment Noted Time PHQ-9 Depression Total Score: 0 07/07/19 9:25 AM EDT documented as of this encounter Care Teams Process Mechanic Relationship Specialty Start Date End Date Batsheva Bhardwaj MD [address] [place] [address] PCP - General Family Medicine 01/07/19 [facility] 06/09/24 documented as of this encounter
--- OUTSIDE RECORDS SUMMARY | 2024-12-07 14:06 | XMS_ITS | Clinical Summary ---
Author Organization [employer] Address [address] [facility] 7t [place] [address] Care Team Providers Care Rotary Dump Operator Name Role Phone Batsheva Bhardwaj MD [...] 11/08/2022 Colon cancer screening 11/08/2022 Seizure disorder (CMS/HCC) 09/30/2022 Forgetfulness 09/30/2022 Assessment & Plan (11/08/2022 [...] Encounters Date Type Department Care Team Description 12/03/2024 Travel 11/12/2024 Refill [facility] [address] [place] [address] Batsheva Bhardwaj MD Essential hypertension; Gastroesophageal reflux disease, unspecified whether esophagitis present 10/20/2024 Refill [facility] [address] [place] [address] Batsheva Bhardwaj MD Hypertriglyceridemia; Primary insomnia 10/19/2024 Telephone [facility] [address] [place] [address] Batsheva Bhardwaj MD Appointment Request 10/12/2024 Refill [facility] [address] [place] [address] Batsheva Bhardwaj MD Anemia, unspecified type 09/22/2024 Refill [facility] [address] [place] [address] Batsheva Bhardwaj MD Primary insomnia 09/22/2024 Refill [facility] [address] [place] [address] Mell Barry MD Generalized abdominal pain; Seasonal allergies; Essential hypertension; Primary insomnia 09/20/2024 Telephone [facility] [address] [place] [address] Batsheva Bhardwaj MD 09/17/2024 10:00 AM EDT Office Visit [facility] [address] [place] [address] Batsheva Bhardwaj MD Essential hypertension (Primary Dx); Bilateral tinnitus; Resistant hypertension 09/17/2024 Travel 09/16/2024 Telephone [facility] [address] [place] [address] Batsheva Bhardwaj MD Chart Prep 09/11/2024 Refill [facility] [address] [place] [address] Batsheva Bhardwaj MD Essential hypertension; Gastroesophageal reflux disease, unspecified whether esophagitis present 09/08/2024 Patient Out[facility] [address] [place] [address] Batsheva Bhardwaj MD Pre-visit Planning ([facility] screening completed on 07/06/2024) from Last 3 [...] Sign Reading Time Taken Comments Blood Pressure 154/78 12/03/2024 12:46 PM EDT Pulse 80 12/03/2024 12:46 PM EDT Temperature 36.5 C (97.7 F) 09/17/2024 [...] Description 12/31/2024 11:30 AM EDT Medication Management [facility] [address] [place] [address] Haroldo Pearson, PharmD [address] [place] [address] Health Maintenance Due Date Last Done Comments [...] 9:52 AM EDT) Triglycerides 699(H) <150 mg/dL [facility] Comment:Desirable Triglyceri de: less than 150 mg/dLBorderline High Triglyceride 150-199 mg/dLHigh Triglyceride: 200-499 mg/dLVery High Triglyceride: greater than or equal to 5OO mg/dL Cholesterol 263(H) <200 mg/dL [facility] Comment:Desirable Cholestero l: less than 200 mg/dLBorderline High Cholesterol: 200-239 mg/dLHigh Cholesterol: greater than 239 mg/dL LDL Cholesterol Calculated TNP <100 mg/dL [facility] Comment:Unable to calculate the LDL. The formula of Friedwald,Pimentel, and Thai is only valid if the triglycerides areless than 400 mg/dl. HDL Cholesterol 33(L) >40 mg/dL [facility] Comment:Desirable HDL: great er than 40 mg/dL Note: This HDL assay may give artificially low results in patients with liver disease. Blood Venous blood specimen / Unknown 07/06/2024 9:52 AM EDT 07/06/2024 11:17 AM EDT us Batsheva Tracy MD LAB BLOOD ORDERABLES Final Result [facility] [address] [place] [address] [phone] from Last 3 Months or Most Recently Relevant to Health Maintenance Insurance [facility] [employer] OPT[employer] (O D-SNP) [place] [id number] Care Teams Rotary Dump Operator Relationship Specialty Start Date End Date Batsheva Bhardwaj MD [address] [place] [address] PCP - General Family Medicine 01/07/19 [facility] 06/09/24
--- OUTSIDE RECORDS SUMMARY | 2024-12-07 14:06 | XMS_ITS | Encounter Summary ---
Author Organization [employer] Address [address] [facility] [address] [place] [address] Care Team Providers Care Women'S Studies Professor Name Role Phone Batsheva Bhardwaj MD Primary Care Provide r Reason for Visit * Reason Comments Med Refill Encounter Details Date Type Department Care Team ([facility] Contact Info) Description 04/07/2022 Refill [facility] [address] [place] [address] Gerda Knapp, ANP [address] [place] [address] Gastroesophageal reflux disease, unspecified whether esophagitis present [...] Department Care Team (Late Contact Info) Description 12/31/2024 11:30 AM EDT Medication Management [facility] [address] [place] [address] Haroldo Pearson, JoseD [address] [place] [address] documented as of this encounter Visit Diagnoses Diagnosis Gastroesophageal reflux disease, unspecified whether esophagitis present documented in this encounter Care Teams Women'S Studies Professor Relationship Specialty Start Date End Date Batsheva Bhardwaj MD [address] [place] [address] PCP - General Family Medicine 01/07/19 [facility] 02/13/24 06/29/24 [facility] 06/09/24 documented as of this encounter
--- OUTSIDE RECORDS SUMMARY | 2024-12-07 14:06 | XMS_ITS | Encounter Summary ---
Author Organization [employer] Address [address] [facility] [place] [address] Care Team Providers Care Child And Adolescent Therapist Name Role Phone Batsheva Bhardwaj MD Primary Care Provide r Reason for Visit * Reason Comments Med Refill Encounter Details Date Type Department Care Team (Late st Contact Info) Description 05/24/2022 Refill [facility] [address] [place] [address] Isabel Mann MD [address] [place] [address] Pain Social History Tobacco Use Types Packs/Day [...] Description 12/31/2024 11:30 AM EDT Medication Management [facility] [address] [place] [address] Haroldo Pearson, PharmD [address] [place] [address] documented as of this encounter Visit Diagnoses Diagnosis Pain Generalized pain documented in this encounter Care Teams Child And Adolescent Therapist Relationship Specialty Start Date End Date Batsheva Bhardwaj MD [address] [place] [address] PCP - General Family Medicine 01/07/19 [facility] 02/13/24 06/29/24 [facility] 06/09/24 documented as of this encounter
--- OUTSIDE RECORDS SUMMARY | 2024-12-07 14:06 | XMS_ITS | Encounter Summary ---
Author Organization [employer] Address [address] [facility] [address] 7t [place] [address] Care Team Providers Care Senior Software Development Manager Name Role Phone Batsheva Bhardwaj MD Primary Care Provide r Reason for Visit * Reason Onset Date Comments Paperwork/Forms 05/21/2023 Encounter Details Date Type Department Care Team ([facility] st Contact Info) Description 05/21/2023 Telephone [facility] [address] [place] [address] Batsheva Bhardwaj MD [address] [place] [address] Paperwork/Forms Social History Tobacco Use Types Packs/Day [...] t he electric, gas, oil or water [employer] threatened to shut off services in your [...] - 05/21/2023 11:42 AM EDT Tc from [facility] with [facility] calling to inform she received the plan of care documents on 05/13/23 but only received 4 pages and it should have been 5 pages . Any question please contact phone # [phone] . documented in this encounter Plan of Treatment Upcoming Encounters Date Type Department Care Team (Late st Contact Info) Description 12/31/2024 11:30 AM EDT Medication Management [facility] [address] [place] [address] Haroldo Pearson, PharmD [address] [place] [address] documented as of this encounter Visit Diagnoses Not on filedocumented in this encounter Additional Health Concerns Assessment Noted Time PHQ-9 Depression Total Score: 0 10/01/19 23 2:04 PM EDT documented as of this encounter Care Teams Senior Software Development Manager Relationship Specialty Start Date End Date Batsheva Bhardwaj MD [address] [place] [address] PCP - General Family Medicine 01/07/19 [facility] 02/13/24 06/29/24 [facility] 06/09/24 documented as of this encounter
--- NOTE | 2024-12-07 14:13 | EEG_ITS ---
Roomed Performed:?402 Reason: epilepsy History: tubular adenoma, seizure, chronic headaches, cerebral hemorrhage, high cholesterol, blood clots, acid reflux, hypertension - Patient reports bilateral ringing in ears, worse in the morning but can be at any time. Medication: acetaminophen, amlodipine, atorvastatin, chlorthalidone, folic acid, hydrocodone, ibuprofen, levetiracetam, lisinopril, multivitamin, omeprazole Technical description? Photic stimulation: completed Hyperventilation:?omitted Behavioral state: pleasant State of Consciousness: awake and drowsy Skull defect: none Sedation: none Handedness: left Duration of study:?31 min 44 sec Description: This is a 16 channel EEG with an EKG lead. Patient is reported awake and drowsy during the tracing. Background EEG rhythm is asymmetric with right hemispheric theta range slowing in comparison to fast alpha in left hemisphere with frequent muscle and lead artifacts. Photic stimulation does not produce any significant driving. Hyperventilation is not performed. Cardiac lead does not reveal any significant abnormality. No definite sharp wave spikes or paroxysmal tendency noted. Impression: Abnormal EEG suggestive of right hemispheric dysfunction but no epileptic discharges noted. Clinical and imaging correlation is recommended [facility]
== END 2024-12-07 12:58 | disposition home or self-care (01) ==
LOC: HO.NEURO 12:57
PROVIDERS: PCP Internal Medicine; Visit Provider Registered Nurse
DX: G40.909 Epilepsy, unspecified, not intractable, without status epilepticus (principal); R94.01 Abnormal electroencephalogram [EEG]
CPT/HCPCS: 95816

== ENCOUNTER → 2024-12-07 14:13 | Outpatient (BNV) | payer OTHER, SELFPAY | PROVIDERS: PCP Internal Medicine; Visit Provider Psychiatry & Neurology Neurology | DX: G40.909 Epilepsy, unspecified, not intractable, without status epilepticus (principal); R94.01 Abnormal electroencephalogram [EEG] | CPT/HCPCS: 95816 ==

== ENCOUNTER 2024-12-17 11:29 | Outpatient (AMB) | payer OTHER, SELFPAY ==
--- NOTE | 2024-12-17 11:32 | MHC.OFFVIS ---
Intake Visit Reasons: after EEG Commercial Crabber Required: Yes Commercial Crabber Services: Commercial Crabber Offered & Declined (APPLICATION HELPER to translate) Accompanied by: APPLICATION HELPER and friend Allergies Seasonal Allergies Allergy (Mild, Verified 12/17/24 11:40) unknown Medication List - Last Reconciled 12/17/24 by Terra Bunn CNP acetaminophen ER (Arthritis Pain Relief (acetaminophen) ER) 1,300 mg PO Q8H PRN amlodipine 10 mg PO DAILY atorvastatin 40 mg PO DAILY chlorthalidone 25 mg PO DAILY folic acid 1 mg PO DAILY hydrocodone-acetaminophen 5-325 mg 1 tab PO Q4-6H PRN ibuprofen 600 mg PO Q4-6H PRN lisinopril 40 mg PO DAILY fvjuwzye-ndt-jeurm acid-lutein 400-250 mcg (Centrum Silver) 1 tab PO DAILY omeprazole 40 mg PO DAILY HPI Comments Details: 69-year-old man with h/o ICH and right temporal encephalomalacia, and probably related seizure disorder (history was limited, and seizure apparently included falling and convulsions - however he denied any seizures and stopped levetiracetam years ago as he did not have seizures and did not like how medication made him feel), who returned in 11/2024 after nearly 2 years with new concern of intermittent bilateral tinnitus that started few months ago. 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 He was doing okay. No change to intermittent tinnitus. It happened through out the day without specific trigger. It did not disrupt sleep. No associated symptoms, no dizziness or headaches. He had audiogram in 11/2024 which showed sensorineural hearing loss and he was waiting to for hearing aids. No seizures. He did not have MRI done yet. He was not taking many medications as prescribed and many medications were recently changed. He did not have list of current medications. COUNT INCLUDES [facility] Medical History (Updated 11/26/24 @ 09:58 by Terra Bunn CNP) Tubular adenoma Seizure Chronic headaches History of cerebral hemorrhage High cholesterol History of blood clots Acid reflux Hypertension Surgical History History of esophagogastroduodenoscopy (EGD) H/O colonoscopy Hx of brain surgery [place] teeth removed Hx of cervical spine surgery Family History Mother No problems noted. Father No problems noted. Brother Anesthesia complication Social History Household Members: None Alcohol intake: current Alcohol intake frequency: former alcohol drinker Patient Tobacco Use Status: Current everyday Tobacco user Tobacco use type: Cigarette Cigarettes Per Day: 6 Advance Directives Date on File: 04/11/19 Current occupational status: unemployed Current occupation: right handed Review of Systems Const Denies chills, Denies daytime sleepiness, Denies difficulty sleeping, Denies fatigue, Denies fever(s), Denies frequent falls, Denies headache(s), Denies increased appetite, Denies poor appetite, Denies snoring, Denies weakness, Denies weight gain and Denies weight loss Eyes Denies loss of vision ENT Denies vertigo, Denies dizziness and Denies headache(s) Card Denies chest pain at rest, Denies chest pain with activity, Denies syncope, Denies leg edema and Denies palpitations Resp Denies snoring GI Denies constipation, Denies heartburn, Denies diarrhea and Denies nausea Denies urinary frequency, Denies urinary incontinence and Denies urinary urgency Musc Denies abnormal gait, Denies numbness and Denies tingling Skin/Breast Denies dry skin and Denies rash Neuro Denies abnormal gait, Denies vertigo, Denies dizziness, Denies syncope, Denies frequent falls, Denies headache(s), Denies lack of coordination, Denies loss of vision, Denies memory loss, Denies numbness, Denies restless legs, Denies seizure-like activity, Denies tingling, Denies paresthesias, Denies tremor(s) and Denies weakness Psych Denies anxiety, Denies depression, Denies auditory hallucinations, Denies memory loss, Denies visual hallucinations and Denies suicidal ideation Endo Denies fatigue and Denies palpitations Physical Exam Const Other: General Appearance:? normal, in no acute distress. Skin:? no rashes, no significant birthmarks. Heart:? S1, S2 normal, no murmurs. Lungs:? clear anteriorly and posteriorly. Extremities:? no edema. Psych:? alert, oriented, cognitive function intact, cooperative with exam. Neuro Other: Mental Status:?Normal attention, orientation, memory and affect.? Cranial Nerves:?Pupils are equal, round and reactive to light. External occular muscles are intact. Visual rand are full. Face is symmetrical. Facial sensations are normal. Tongue is midline. Palate elevates symmetrically. Shoulder shrugging is normal. Hearing to bedside conversation is normal. Motor Examination:?DTRs absent. Sensory Exam:?....? Coordination:?No ataxia,?no titubation.? Gait Exam: Cautious with cane. Cerebellar Signs:?Xncbyt-ym-pdok is okay. Extrapyramidal System:?No tremor, rigidity with normal facial expressions.? Pronator Drift:?Not present.? Involuntary Movements:?No tremors seen.? Speech:?Normal.? Results Reviewed Results Reviewed: [address] [address] Electroencephalogram Report Signed Patient: Ralph Jose MR#: [id number] : 1955 Acct:[id number] Age/Sex: 69 / M ADM Date: 12/07/24 Loc: HO.NEURO Attending Dr: Terra Bunn CNP Ordering Physician: Terra Bunn CNP Date of Service: 12/07/24 Procedure(s): EEG electroencephalogram Accession Number(s): [id number] cc: Batsheva Bhardwaj MD~ Reason for Exam: G40.909 - Epilepsy, unspecified, not intractable, without status epilept... Roomed Performed:?402 Reason: epilepsy History: tubular adenoma, seizure, chronic headaches, cerebral hemorrhage, high cholesterol, blood clots, acid reflux, hypertension - Patient reports bilateral ringing in ears, worse in the morning but can be at any time. Medication: acetaminophen, amlodipine, atorvastatin, chlorthalidone, folic acid, hydrocodone, ibuprofen, levetiracetam, lisinopril, multivitamin, omeprazole Technical description? Photic stimulation: completed Hyperventilation:?omitted Behavioral state: pleasant State of Consciousness: awake and drowsy Skull defect: none Sedation: none Handedness: left Duration of study:?31 min 44 sec Description: This is a 16 channel EEG with an EKG lead. Patient is reported awake and drowsy during the tracing. Background EEG rhythm is asymmetric with right hemispheric theta range slowing in comparison to fast alpha in left hemisphere with frequent muscle and lead artifacts. Photic stimulation does not produce any significant driving. Hyperventilation is not performed. Cardiac lead does not reveal any significant abnormality. No definite sharp wave spikes or paroxysmal tendency noted. Impression: Abnormal EEG suggestive of right hemispheric dysfunction but no epileptic discharges noted. Clinical and imaging correlation is recommended Audiogram 11/2024: Otoscopy within normal Au. Tympanograms- could not maintain seal to record results either ear. Puretone thresholds borderline normal/mild gradually sloping to severe sensorineural hearing loss Au. Asymmetry noted worse Ad at 4kHz only (reported). EEG at office in 05/2019: WNL CT [place] [facility] [place]: R temporal encephalomalacia Assessment & Plan Assessment & Plan (1) Seizure disorder: Code(s): G40.909 - Epilepsy, unspecified, not intractable, without status epilepticus Category: Medical Plan: 69-year-old man with h/o ICH and right temporal encephalomalacia, and probably related seizure disorder, who returned in 11/2024 after nearly 25 months for new concern of intermittent bilateral tinnitus. He stopped levetiracetam few years ago. He did not think medication was necessary, as he states he has not had any seizures, and did not like how he felt with medication (weakness). He denies any seizure-like episodes. EEG results reviewed, which were abnormal, suggestive of right hemispheric dysfunction. He was educated on risk of seizure, given his history and EEG findings, however no seizure-like episodes were noted and he did not want medication, along with history of medication non-compliance, will hold off on starting medication unless new symptoms develop. He did not have MRI done yet. (2) History of cerebral hemorrhage: Comment: with endovascular intervention Code(s): Z86.79 - Personal history of other diseases of the circulatory system Category: Medical (3) Encephalomalacia: Code(s): G93.89 - Other specified disorders of brain Category: Medical (4) Tinnitus of both ears: Code(s): H93.13 - Tinnitus, bilateral Category: Medical Plan: He did not have MRI done yet. He was asked to bring list of medications to next appointment. Plan Meds tried: levetiracetam 250mg twice a day Coding Level of Care Code Est Pt Level 4 (68336) Diagnoses Seizure disorder G40.909 History of cerebral hemorrhage Z86.79 Encephalomalacia G93.89 Tinnitus of both ears H93.13
== END 2024-12-17 11:52 | disposition home or self-care (01) ==
LOC: HO.HSM 11:30
PROVIDERS: PCP Internal Medicine; Visit Provider Registered Nurse
DX: G40.909 Epilepsy, unspecified, not intractable, without status epilepticus (principal); Z86.79 Personal history of other diseases of the circulatory system; G93.89 Other specified disorders of brain; H93.13 Tinnitus, bilateral
CPT/HCPCS: 99214

== ENCOUNTER → 2024-12-17 11:29 | Outpatient (BNVA) | payer OTHER, SELFPAY | PROVIDERS: PCP Internal Medicine; Visit Provider Registered Nurse | DX: G40.909 Epilepsy, unspecified, not intractable, without status epilepticus (principal); G93.89 Other specified disorders of brain; H93.13 Tinnitus, bilateral; Z86.79 Personal history of other diseases of the circulatory system | CPT/HCPCS: 99212 ==

== ENCOUNTER → 2025-01-11 10:06 | Outpatient (BNV) | payer OTHER, SELFPAY | PROVIDERS: Visit Provider Radiology Diagnostic Radiology | DX: I67.82 Cerebral ischemia (principal) | CPT/HCPCS: 70551 ==

== ENCOUNTER 2025-01-11 10:15 | Outpatient (REF) | payer OTHER, SELFPAY ==
--- OUTSIDE RECORDS SUMMARY | 2020-05-04 10:22 | XMS_ITS | Continuity of Care Document ---
Author Organization [facility] Address [address] [place] [address] Phone Care Team Providers Care Hematology Nurse Educator Name Role Phone Unavailable Unavailable Unavailable Allergies, Adverse Reactions, Alerts Substance Reaction Status Criticality No Known Allergies Active No Inform ation Medications Medication Instructions Dosage Effective Dates (start - stop) Status Comments Zoladex 10.8 mg subcutaneous implant inject (10.8MG) by subcutaneous route every 12 weeks 10.8 MG - Active Procedures Procedure Date AUDIT/DAST, 15-30 MIN OFFICE/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, EST OFFICE/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, EST OFFICE/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, EST OFFICE/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, EST OFFICE/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, EST OFFICE/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, EST PREV VISIT, EST, AGE 40-64 OFFICE/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, EST OFFICE/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, EST OFFICE/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, EST OFFICE/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, EST IMMUNIZATION ADMIN, EACH ADD Influenza Vaccine, Quad, 3 Yrs Or > IMMUNIZATION ADMIN TDAP VACCINE >7 IM OFFICE/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, 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, EST PREV VISIT, NEW, AGE 40-64 Advance Directives Directive Yes / No Effective Date File Name No Information Encounters Encounter Description Practice Location Reason(s) For Visit Diagnoses Date Provider Providers Copied on Encounter [facility], [address], [place], [place], [id number], [place] tel:[phone] [place] [address] No Information 1 No Information [facility], [address] [facility] [address], [place], [place], [id number], [place] tel:[phone] [facility] Posterior auricular lymphadenopat hy 0 No Information OFFICE/OUTPA TIENT VISIT, EST [facility], [address] [facility] [address], [place], [place], [id number], [place] tel:[phone] [facility] prostate cancer (chief complaint)h ypertension (chief complaint) Recurrent prostate cancerScreeni ng for metabolic disorder 0 No Information OFFICE/OUTPA TIENT VISIT, EST [facility], [address] [facility] [address], [place], [place], [id number], [place] tel:[phone] [facility] Prostate cancer (chief complaint)r ravindra (chief complaint) Chronic pruritic rash in adultElevated PSA 0 No Information OFFICE/OUTPA TIENT VISIT, EST [facility], [address], [place], [place], [id number], [place] tel:[phone] [place] [address] Follow Up of Prostate problems (chief complaint) Prostate cancerPosteri or auricular lymphadenopat hy 0 No Information OFFICE/OUTPA TIENT VISIT, EST [facility], [address] [facility] [address], [place], [place], [id number], [place] tel:[phone] [facility] Prostate cancer (chief complaint) Prostate cancer 9 No Information OFFICE/OUTPA TIENT VISIT, EST [facility], [address], [place], [place], [id number], [place] tel:[phone] [facility] Prostate cancer (chief complaint) Prostate cancer 9 No Information [facility], [address] [facility] [address], [place], [place], [id number], [place] tel:[phone] [place] [address] Submucosal leiomyoma of colon 9 No Information [facility], [address] [facility] [address], [place], [place], [id number], [place] tel:[phone] [place] [address] Enlarged lymph node in neck 9 Meeta Pichardo. [address] [facility], [place], [place], [id number]. tel:[phone] OFFICE/OUTPA TIENT VISIT, EST [facility], [address] [facility] [address], [place], [place], [id number], [place] tel:[phone] [facility] rash (chief complaint) Tinea crurisTinea pedis of both feetLymphaden opathy, periauricular S/P prostatectomy 9 No Information PREV VISIT, EST, AGE 40-64 [facility], [address] [facility] [address], [place], [place], [id number], [place] tel:[phone] [place] [address] preventive exam (chief complaint) Encounter for adult annual physical exam w/ abnormal findingS/P prostatectomy Encounter for screening for malignant neoplasm of colonLymphade nopathy, periauricular Tinea crurisTinea pedis of both feet 9 No Information OFFICE/OUTPA TIENT VISIT, EST [facility], [address] [facility] [address], [place], [place], [id number], [place] tel:[phone] [place] [address] rash (chief complaint) Tinea crurisVitamin D deficiency 8 No Information OFFICE/OUTPA TIENT VISIT, EST [facility], [address] [facility] [address], [place], [place], [id number], [place] tel:[phone] [facility] rash (chief complaint) Tinea cruris 8 No Information OFFICE/OUTPA TIENT VISIT, EST [facility], [address] [facility] [address], [place], [place], [id number], [place] tel:[phone] [place] [address] Follow Up of Wound (chief complaint) Prostate cancerVisit for wound checkS/P prostatectomy 7 No Information OFFICE/OUTPA TIENT VISIT, EST [facility], [address] [facility] [address], [place], [place], [id number], [place] tel:[phone] [place] [address] wound check (chief complaint) Prostate cancer 7 No Information OFFICE/OUTPA TIENT VISIT, EST [facility], [address] [facility] [address], [place], [place], [id number], [place] tel:[phone] [place] [address] f/u prostate cancer (chief complaint) Prostate cancer 7 No Information [facility], [address] [facility] [address], [place], [place], [id number], [place] tel:[phone] [place] [employer] No Information 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 . OFFICE/OUTPA TIENT VISIT, EST [facility], [address] [facility] [address], [place], [place], [id number], [place] tel:[phone] [place] [address] prostate problems (chief complaint) Prostate cancer 7 No Information [facility], [address] [facility] [address], [place], [place], [id number], [place] tel:[phone] [place] [address] Elevated PSA 7 No Information [facility], [address] [facility] [address], [place], [place], [id number], [place] tel:[phone] [place] [address] Elevated PSA 7 No Information PREV VISIT, NEW, AGE 40-64 [facility], [address], [place], [place], [id number], [place] tel:[phone] [facility] preventive exam (chief complaint) Encntr for general adult medical exam w/o abnormal findingsEncou nter for screening for malignant neoplasm of colon 7 No Information Family History Family Member Type Diagnosis Age At Onset Mother Problem (finding) Renal disease Problem (finding) No family history of Di abetes mellitus Problem (finding) No family history of Hy pertension Problem (finding) No family history of Ca ncer, testicular Problem (finding) No family history of Ca ncer, colon Problem (finding) No family history of Ca ncer, prostate Problem (finding) No family history of Hi gh cholesterol Immunizations Vaccine Date Status Comments Influenza, injectable, quadrivalent, split virus, 3 years or older Flulaval Quad [id number] administered Source: New Immuniza tion Record Tdap (Adacel) administered Source: New Im munization Record Payers Payer name Insurance type Covered republican ID Authoriza tion(s) [employer] [id number] [employer] Z [id number] [employer] [id number] Social History Type Description Quantity Date Captured Comments Alcohol Use Details Unknown Caffeine Use Details Unknown Tobacco Use Status No Information Smoking Status No Information Sex Male Chief Complaint And Reason For Visit No Information Reason For Referral Reason For Referral No Information Plan Of Treatment Date Type Action Status Goal Zoster vaccine (). Due on due Goal Unhealthy drug u se screening. Due on due Goal Zoster vaccine. Due on due Goal FOBT. Due on due Goal Pneumococcal vaccine. Due on due Goal Hepatitis C Screening. Due o n due Goal Lipid panel. Due on due Goal Influenza vaccine. Due on due Goal Colonoscopy. Due on due Goal Document SOGI In formation. Due on due Goal Diabetes Screening. Due on A due Goal Document SOGI In formation. Due on due Goal FOBT. Due on due Goal Zoster vaccine. Due on due Goal Pneumococcal vaccine. Due on due Goal Diabetes Screening. Due on A due Goal Lipid panel. Due on due Goal Colonoscopy. Due on due Goal Influenza vaccine. Due on Oc due Goal Hepatitis C Screening. Due o n due Goal Document SOGI In formation. Due on due Goal Pneumococcal vaccine. Due on due Goal Hepatitis C Screening. Due o n due Goal FOBT. Due on due Goal Zoster vaccine. Due on due Goal Influenza vaccine. Due on due Goal Lipid panel. Due on due Goal Colonoscopy. Due on due Goal Diabetes Screening. Due on A due Goal Diabetes Screening. Due on A due Goal FOBT. Due on due Goal Influenza vaccine. Due on Oc due Goal Zoster vaccine. Due on due Goal Pneumococcal vaccine. Due on due Goal Hepatitis C Screening. Due o n due Goal Lipid panel. Due on due Goal Colonoscopy. Due on due Goal Document SOGI In formation. Due on due Goal Diabetes Screening. Due on A due Goal Document SOGI In formation. Due on due Goal Hepatitis C Screening. Due o n due Goal Influenza vaccine. Due on Oc due Goal Zoster vaccine. Due on due Goal FOBT. Due on due Goal Colonoscopy. Due on due Goal Pneumococcal vaccine. Due on due Goal Lipid panel. Due on due Goal Influenza vaccine. Due on Oc due Goal FOBT. Due on due Goal Zoster vaccine. Due on due Goal Lipid panel. Due on due Goal Colonoscopy. Due on due Goal Hepatitis C Screening. Due o n due Goal Document SOGI In formation. Due on due Goal Diabetes Screening. Due on A due Goal Pneumococcal vaccine. Due on due Goal FOBT. Due on due Goal Lipid panel. Due on due Goal Influenza vaccine. Due on Oc t due Goal Zoster vaccine. Due on due Goal Pneumococcal vaccine. Due on due Goal Diabetes Screening. Due on A due Goal Document SOGI In formation. Due on due Goal Colonoscopy. Due on due Goal Hepatitis C Screening. Due o n due Goal Influenza vaccine. Due on Oc due Goal Colonoscopy. Due on due Goal Hepatitis C Screening. Due o n due Goal Lipid panel. Due on due Goal APE. Due on due Goal Zoster vaccine. Due on due Goal Tdap. Due on due Goal Document SOGI In formation. Due on due Goal Diabetes Screening. Due on A due Goal Zoster vaccine. Due on due Goal Diabetes Screening. Due on A due Goal Influenza vaccine. Due on Oc due Goal FOBT. Due on due Goal Lipid panel. Due on due Goal Hepatitis C Screening. Due o n due Goal Document SOGI In formation. Due on due Goal Tdap. Due on due Goal APE. Due on due Goal Hepatitis C Screening. Due o n due Goal Lipid panel. Due on due Goal Tdap. Due on due Goal FOBT. Due on due Goal Influenza vaccine. Due on Oc due Goal Document SOGI In formation. Due on due Goal Zoster vaccine. Due on due Goal Diabetes Screening. Due on A due Goal APE. Due on due Goal Lipid panel. Due on due Goal Zoster vaccine. Due on due Goal FOBT. Due on due Goal APE. Due on due Goal Tdap. Due on due Goal Diabetes Screening. Due on A due Goal Influenza vaccine. Due on due Goal Colonoscopy. Due on due Goal Tdap. Due on due Goal Zoster vaccine. Due on due Goal APE. Due on due Goal Influenza vaccine. Due on due Goal FOBT. Due on due Goal Zoster vaccine. Due on due Goal Diabetes Screening. Due on A due Goal Influenza vaccine. Due on due Goal APE. Due on due Goal Tdap. Due on due Goal Lipid panel. Due on 018 due Goal Colonoscopy. Due on due Goal Colonoscopy. Due on due Goal Colonoscopy. Due on due Goal Tdap. Due on due Goal Colonoscopy. Due on due Goal Influenza vaccine. Due on due Goal Influenza vaccine. Due on due Goal Colonoscopy. Due on 015 due Goal Tdap. Due on due Goal Tdap. Due on due Goal Influenza vaccine. Due on due Goal Tdap. Due on due Goal Influenza vaccine. Due on due Referral Ordered: Referrals: Dermatology. Evaluate and treat Appointment date/timeframe: 09/28/2019 ordered Referral Ordered: Referrals: Gastroenterology. Evaluate and treat ordered Referral Ordered: US HEAD & NECK, SOFT TISSUE (THYROID, PARATHYROID, PAROTID) Appointment date/timeframe: 08/06/2018 ordered Referral Ordered: X-RAY EXAM OF MASTOIDS COMPLETE MIN 3 VIEWS Right ordered Referral Ordered: NEEDLE BIOPSY, LYMPH NODES Right ordered Referral Ordered: Referrals: Urology. Evaluate and treat Appointment date/timeframe: 10/10/2016 ordered Referral Ordered: COLONOSCOPY SCREENING ordered Future Order: Lab Order Hemoglob in A1C (HGBA1C), Sent on: Sent Future Order: Lab Order Lipid Panel (LIPI D), Sent on: Sent History Of Present Illness Encounter Date Complaint History Of Prese nt Illness hypertension It is currently stable. Risk factors include male gender. The hypertension is exacerbated by nothing. Additional information: BP WNL - doing well. radiation weekly at [facility] prostate cancer (comments) on we ek 4 of radiation prostate cancer The initial visi t date was 08/19/2016. Date of diagnosis was August 2016. The problem is in relapse. There are no initial symptoms. A PSA test was performed. Identified risk factors include family history of prostate cancer and obesity. Performance status is scored as a 0. The patient is fully active and able to perform all normal activities. Pertinent negatives include abdominal pain and vomiting. Additional information: started androgen blockers and will get radiation for recurrent prostate cancer - pelvic origin. they think it's in the seminal vesicle, also has an enlarging groin LN. pt states treatment is going well. Prostate cancer The problem is w orsening. A PSA test was performed. Additional information: had a f/u with urology - wants him to see oncology, appt scheduled tomorrow - PSA has been gradually rising s/p prostate cancer and prostatectomy. Prostate cancer (comments) per [facility] note:(1) Cancer Control:Post-op PSA values include:0.06ng/ml (02/2017)0.07ng/ml (06/2017)0.06ng/ml (09/2017)0.27ng/ml (01/2019)0.26ng/ml (02/2019)0.43ng/ml (08/2019) rash The patient pres ents for rash. This episode began 6 years ago. The symptom(s) are described as occurs continuously. Affected area(s) include groin. The patient describes the affected area(s) as dry and itchy. Denies aggravating factors. The symptoms are not relieved by antifungal cream. Associated symptoms include dry skin and pruritus. Pertinent negatives include erythema (skin). Additional information: itchy skin on/around genitals. recurrent problem - tried clotrimazole in the past without much effect. denies any change in the skin. involving the scrotum and some parts of groin. nothing on the penis. Follow Up of Prostate problems O nset was gradual. The problem is with no change. Pertinent history includes prior prostate surgery, obesity. Associated symptoms include nocturia (4 times per night) and urinary frequency. Pertinent negatives include chills, fever, hematuria, intermittent stream, slow stream, splitting stream, urgency, urinary incontinence and weight gain or weight loss. Additional information: FU with urologist 08/23/19. Nocturia is related to drinking a lot of water during the day but has no urgency.. Prostate cancer The problem is i n remission. There are no initial symptoms. A clinical rectal exam was not performed. A PSA test was performed; findings level .24. Identified risk factors include obesity. Performance status is scored as a 0. The patient is fully active and able to perform all normal activities. Pertinent negatives include dysuria, weight gain and weight loss. Additional information: has not been able to schedule urology appt yet - was waiting for insurance to be active. here to review labs. Prostate cancer The problem is i n remission. A clinical rectal exam was not performed. A PSA test was performed. Additional information: insurance inactive - was told to f/u with specialist months ago but never took care of insurance issue. needs to repeat PSA and will fax to urology for consideration. has reapplied for insurance. rash The patient pres ents for rash. The symptom(s) are described as moderate, improving and occurs continuously. Affected area(s) include groin and both feet. Intertriginous areas are affected. The patient describes the affected area(s) as itchy and red. Denies aggravating factors. Relieving factors include oral antifungals. Associated symptoms include erythema (skin) and pruritus. Pertinent negatives include bleeding, bleeding skin and dry skin. Additional information: taking oral terbinafine - rash improved, about to finish 4 week treatment has not had LN biopsy yet. preventive exam (comments) worri ed about lump behind R ear - there x5mo, has not changed at all never painful preventive exam Men's preventive visit. Patient is on a healthy diet. Marital status: . Concern(s)/Requests Detail: eating a natural diet - not exercising but working Relevant history is negative for passive smoke exposure, passive vaping exposure, alcohol use. rash The patient pres ents for rash. The symptom(s) are described as mild, improving and occurs continuously. Affected area(s) include groin. The patient describes the affected area(s) as itchy and red. Aggravating factors include sweating. Relieving factors include antifungal cream. Associated symptoms include erythema (skin), painful rash and pruritus. Pertinent negatives include bleeding, bleeding skin, dry skin and scaling. Additional information: feels rash is improved - did not do the clotrimazole cream, instead took itraconazole pills for approx 30 days - still feels there is some rash. using powder in groin every day twice daily - helping with moisture. rash Onset 4 years ag o. Location is groin. The describes it as erythematous and itchy. It occurs continuously. The problem is with no change. Denies aggravating factors. Denies relieving factors. Pertinent negatives include diarrhea, fatigue, fever, headache, joint symptoms, kerion(s) in scalp, pain, sore throat, urticaria and vomiting. Comments: in the groin - itchy, dark skin and no discharge. no pain. tried vinegar and bicarb on it - no help. partner stating it bleeds - but appears only to be after itching - all over external genitalia.. Follow Up of Wound (comments) dr castillo only 2 bottles water/dayno drainage from wound site Follow Up of Wound Date of last tetanus: 12/18/2016. Additional information: 12/30 [facility] robotic assisted prostatectomy 04/11 to prostate malignancy, 01/05 [facility] discharge. 01/08 (yesterday) visit w/ PCP and sent to [facility] ER for wound check/concern for infection. Records unavailable but family reports ER did not make changes. No fever/CP/SOB. Urine produced from rosado cath. wound check robotic prostate ctomy 12/30 then developed post op ileus- d/c 01/05pt given appt to see urologist 01/14/17 [facility] on wound carewife has been changing bandage each morning, full saturated, open 2cm wound on abdomen that drains blood/yellow fluid pt reports a lot of discomfort in abdomen and bloatingsoft bowel movements 2-3x/dayusing tylenol 2 tabs 2-3x/day with little relief of painnot using oxycodone any longer - was making him too tiredis concerned that his wound is leaking so much fluid every day and that he does not have a follow up for another week denies fevers, nausea, diarrhea, vomiting f/u prostate cancer having surge ry on the robotic prostatectomy has preop appt at [facility] 12/23/16 at 11am pt given instrcutions in [place] and very unsure of what they say as they are in [place] and pt only speaks/reads arabic prostate problems Patient does n ot a history of urinary tract infections. A PSA was performed. His last digital rectal exam which revealed findings of firm per urology. He has had prior treatment of prostate biopsy + cancer. Pertinent negatives include incomplete emptying, low back pain, pelvic pain, bladder pressure, slow stream, suprapubic pain, urgency, urinary frequency, urge incontinence or urinary straining. Associated symptoms additional comments: seen for APE several mos ago noted to have elevated PSA /prostate levels sent to specialist. preventive exam Men's preventive visit. Patient Health Questionnaire (PHQ-2) is negative. Patient is on a healthy diet. Marital status: . Functional Status Date Functional Assessmen t No Information Instructions Date Instruction Additional Infor mation No Information Assessments Type Assessment Date No Information Patient Care Teams Name Effective Dates (start - stop) Status Members No Information
--- NOTE | ~2025-01-11 | MR_ITS ---
EXAMINATION: MR BRAIN WITHOUT CONTRAST CLINICAL INFORMATION: H93.13. Tinnitus, bilaterally. COMPARISON: Correlated to noncontrast CT dated June 30, 2019. TECHNIQUE: MRI of the brain was obtained using routine sequences without contrast. FINDINGS: No restricted diffusion. The cochlear and vestibular components of the 8th cranial nerves demonstrate no signal abnormality or gross masses. No signal abnormality or masses in the cerebellopontine angle cisterns. Anterior inferior cerebellar artery is type I. There is a 19 x 15 x 15 mm serpiginous cluster flow-void signal abnormality with susceptibility signal center in the right sylvian fissure with the flow-void signal extending into the bifurcation/trifurcation right MCA. There is associated the macrocystic encephalomalacia involving the right superior and middle temporal gyri the right supramarginal and angular gyri and right parietal lobe with ex vacuo dilatation of the right temporal horn lateral ventricle and right atrium. Bilateral multifocal patchy and confluent deep periventricular white matter and deep white matter hyperintense T2 FLAIR signal involving centrum semiovale and gunderson radiata. There is a well aerated degeneration into the right thalamus and right midbrain. Rosario-white matter differentiation is normal. No acute intracranial hemorrhage, mass effect, midline shift, hydrocephalus or herniation. Sellar/suprasellar region is normal. Craniocervical junction is intact with normal position of the cerebellar tonsils. There is a 17 mm polypoid lesion right maxillary sinus. Mucosal thickening and the paranasal sinuses. Secretions in the ethmoid air cells and maxillary sinuses. 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 Probable Spetzler-Compa gradient 2. No acute stroke/nonhemorrhagic ischemia. No gross vestibular schwannoma. Small vessel occlusive disease. Electronically signed by: Yariel Abbasi MD 01/11/2025 11:52 AM EST
--- OUTSIDE RECORDS SUMMARY | 2025-01-11 12:05 | XMS_ITS | Encounter Summary ---
Author Organization [employer] Address [address] [facility] [address] Floor [place] [id number] Care Team Providers Care Chalk Tester Name Role Phone Batsheva Bhardwaj MD Primary Care Provide r Haroldo Pearsno PharmD Unavailable [phone] Reason for Visit * Reason Comments Med Refill Encounter Details Date Type Department Care Team (Late st Contact Info) Description 01/08/2025 Refill [facility] [address] [place] [address] Batsheva Bhardwaj MD [address] [place] [address] Essential hypertension; Gastroesophageal reflux disease, unspecified whether [...] Care Team (Late st Contact Info) Description 01/28/2025 11:30 AM EST Medication Management [facility] [address] [place] [address] Haroldo Pearson, PharmD [address] [place] [address] documented as of this encounter Visit Diagnoses Diagnosis Essential hypertension Unspecified essential hypertension Gastroesophageal reflux disease, unspecified whether esophagitis present documented in this encounter Additional Health Concerns Assessment Noted Time PHQ-9 Depression Total Score: 0 07/07/19 25 9:25 AM EDT documented as of this encounter Care Teams Chalk Tester Relationship Specialty Start Date End Date Batsheva Bhardwaj MD [address] [place] [address] PCP - General Family Medicine 01/07/19 Haroldo Pearson, PharmD [address] [place] [address] Pharmacist Pharmacy 12/03/24 [facility] 06/09/24 documented as of this encounter
--- OUTSIDE RECORDS SUMMARY | 2025-01-11 12:05 | XMS_ITS | Encounter Summary ---
Author Organization [employer] Address [address] [facility] [address]t [address] Floor [place] [id number] Care Team Providers Care Cell Stripper Final Name Role Phone Batsheva Bhardwaj MD Primary Care Provide r Haroldo Pearson PharmD Unavailable [phone] Reason for Visit * Reason Onset Date Comments Paperwork/Forms 05/21/2023 Encounter Details Date Type Department Care Team (Late st Contact Info) Description 05/21/2023 Telephone [facility] [address] [place] [address] Batsheva Bhardwaj MD [address] [place] [address] Paperwork/Forms Social History Tobacco Use Types Packs/Day [...] - 05/21/2023 11:42 AM EDT Tc from [facility] with [facility] calling to inform she received the plan of care documents on 05/13/23 but only received 4 pages and it should have been 5 pages . Any question please contact phone # [phone] . documented in this encounter Plan of Treatment Upcoming Encounters Date Type Department Care Team (Late st Contact Info) Description 01/28/2025 11:30 AM EST Medication Management [facility] [address] [place] [phone] Haroldo Pearson, PharmD [address] [place] [address] documented as of this encounter Visit Diagnoses Not on filedocumented in this encounter Additional Health Concerns Assessment Noted Time PHQ-9 Depression Total Score: 0 10/01/19 23 2:04 PM EDT documented as of this encounter Care Teams Cell Stripper Final Relationship Specialty Start Date End Date Batsheva Bhardwaj MD [address] [place] [address] PCP - General Family Medicine 01/07/19 Haroldo Pearson, JoseD [address] [place] [address] Pharmacist Pharmacy 12/03/24 [facility] 02/13/24 06/29/24 [facility] 06/09/24 documented as of this encounter
--- OUTSIDE RECORDS SUMMARY | 2025-01-11 12:05 | XMS_ITS | Encounter Summary ---
Author Organization [employer] Address [address] [facility] 7t [place] [address] Care Team Providers Care Crime Scene Investigator Name Role Phone Batsheva Bhardwaj MD Primary Care Provide r Haroldo Pearson PharmD Unavailable [phone] Reason for Visit * Reason Onset Date Comments Med Refill PHARMACOGENETICIST Hours 12/05/2022 Martha, the pt 's PHARMACOGENETICIST, called regarding a request for a letter so that the pt's PHARMACOGENETICIST hours could be increased. The pt signed a release, authorizing her to pick and shovel man the letter at [facility], therefore, I informed her that he needs to call [facility] because the request needs to go through them. She verbalized understanding. Encounter Details Date Type Department Care Team (Late st Contact Info) Description 12/05/2022 Telephone [facility] PEDS [address] [place], [place] [phone] Batsheva Bhardwaj MD [address] [place], [place] [phone] Med Refill; PHARMACOGENETICIST Hours (Martha, the pt's PHARMACOGENETICIST, called regarding a request for a letter so that the pt's PHARMACOGENETICIST hours could be increased. The pt signed a release, authorizing her to pick and shovel man the letter at [facility], therefore, I informed [...] 12/05/2022 3:23 PM EDT Martha, the pt's PHARMACOGENETICIST, called regarding a request for a letter so that the pt's PHARMACOGENETICIST hours could beincreased. The pt signed a release, authorizing her to pick and shovel man the letter at [facility], therefore, I informed her that he needs to call [facility] because the request needs to go through them. She verbalized understanding. documented in this encounter Plan of Treatment Upcoming Encounters Date Type Department Care Team (Late st Contact Info) Description 01/28/2025 11:30 AM EST Medication Management [facility] MEDICINE [address] [place] [address] Haroldo Pearson, PharmD [address] [place] [address] documented as of this encounter Visit Diagnoses Diagnosis Primary insomnia Persistent disorder of initiating or maintaining sleep Pain Generalized pain documented in this encounter Additional Health Concerns Assessment Noted Time PHQ-9 Depression Total Score: 0 10/01/19 23 2:04 PM EDT documented as of this encounter Care Teams Crime Scene Investigator Relationship Specialty Start Date End Date Batsheva Bhardwaj MD [address] [place] [phone] PCP - General Family Medicine 01/07/19 Haroldo Pearson, PharmD [address] [place] [phone] Pharmacist Pharmacy 12/03/24 [facility] 02/13/24 06/29/24 [facility] 06/09/24 documented as of this encounter
--- OUTSIDE RECORDS SUMMARY | 2025-01-11 12:05 | XMS_ITS | Encounter Summary ---
Author Organization [employer] Address [address] [facility] [address] [address] Care Team Providers Care Getter Filler Name Role Phone Batsheva Bhardwaj MD Primary Care Provide r Haroldo Pearson PharmD Unavailable Reason for Visit * Reason Comments Med Refill Encounter Details Date Type Department Care Team (Late st Contact Info) Description 05/24/2022 Refill [facility] MEDICINE [address] [place] [phone] Isabel Mann MD [address] [place] [phone] Pain Social History Tobacco Use Types Packs/Day [...] Description 01/28/2025 11:30 AM EST Medication Management [facility] MEDICINE [address] [place] [address] Haroldo Pearson, PharmD [address] [place], [place] [phone] documented as of this encounter Visit Diagnoses Diagnosis Pain Generalized pain documented in this encounter Care Teams Getter Filler Relationship Specialty Start Date End Date Batsheva Bhardwaj MD [address] [place] [phone] PCP - General Family Medicine 01/07/19 Haroldo Pearson, PharmD [address] [place] [address] STEVE Cobos [id number] Pharmacist Pharmacy 12/03/24 [facility] 02/13/24 06/29/24 [facility] 06/09/24 documented as of this encounter
--- OUTSIDE RECORDS SUMMARY | 2025-01-11 12:05 | XMS_ITS | Encounter Summary ---
Author Organization [employer] Address [address] [facility] 7t [place] [address] Care Team Providers Care Insights Strategist Name Role Phone Batsheva Bhardwaj MD Primary Care Provide r Haroldo Pearson PharmD Unavailable [phone] Reason for Visit * Reason Onset Date Comments Appointment Request 10/19/2024 Encounter Details Date Type Department Care Team (Late st Contact Info) Description 10/19/2024 Telephone [facility] MEDICINE [address] [place] [address] Batsheva Bhardwaj MD [address] [place] [address] Appointment Request Social History Tobacco Use Types [...] 10/19/2024 11:48 AM EDT Tc from didi ([employer]PA[employer]) requesting to r/s cx at with pharmacy. Contact didi at [phone] documented in this encounter Plan of Treatment Upcoming Encounters Date Type Department Care Team (Late st Contact Info) Description 01/28/2025 11:30 AM EST Medication Management [facility] MEDICINE [address] [place] [address] Haroldo Pearson PharmD [address] [place] [address] documented as of this encounter Visit Diagnoses Not on filedocumented in this encounter Additional Health Concerns Assessment Noted Time PHQ-9 Depression Total Score: 0 07/07/19 25 9:25 AM EDT documented as of this encounter Care Teams Insights Strategist Relationship Specialty Start Date End Date Batsheva Bhardwaj MD [address] [place] [phone] PCP - General Family Medicine 01/07/19 Haroldo Pearson, PharmD [address] [place] [address] Pharmacist Pharmacy 12/03/24 [facility] 06/09/24 documented as of this encounter
--- OUTSIDE RECORDS SUMMARY | 2025-01-11 12:05 | XMS_ITS | Encounter Summary ---
Author Organization [employer] Address [address] [facility] [address] 7[address] [place] [address] Care Team Providers Care Calender Wind Up Helper Name Role Phone Batsheva Bhardwaj MD Primary Care Provide r Haroldo Pearson PharmD Unavailable [phone] Encounter Details Date Type Department Care Team (Late st Contact Info) Description 12/16/2024 Telephone [facility] MEDICINE [address] [place] [address] Batsheva Bhardwaj MD [address] [place] [address] Social History Tobacco Use Types Packs/Day Years [...] Description 01/28/2025 11:30 AM EST Medication Management [facility] MEDICINE [address] [place] [address] Haroldo Pearson, PharmD [address] [place] [address] documented as of this encounter Visit Diagnoses Not on filedocumented in this encounter Additional Health Concerns Assessment Noted Time PHQ-9 Depression Total Score: 0 07/07/19 25 9:25 AM EDT documented as of this encounter Care Teams Calender Wind Up Helper Relationship Specialty Start Date End Date Batsheva Bhardwaj MD [address] [place] [address] PCP - General Family Medicine 01/07/19 Haroldo Pearson, PharmD [address] [place] [address] Pharmacist Pharmacy 12/03/24 [facility] 06/09/24 documented as of this encounter
--- OUTSIDE RECORDS SUMMARY | 2025-01-11 12:05 | XMS_ITS | Encounter Summary ---
Author Organization [employer] Address [address] [facility] 7[address] [place] [address] Care Team Providers Care Supervisor Channel Process Name Role Phone Batsheva Bhardwaj MD Primary Care Provide r Haroldo Pearson PharmD Unavailable [phone] Reason for Visit * Reason Comments Med Refill Encounter Details Date Type Department Care Team (Late Contact Info) Description 10/02/2022 Refill [facility] MEDICINE [address] [place] [phone] Batsheva Bhardwaj MD [address] [place] [address] Pain Social History Tobacco Use Types Packs/Day [...] Department Care Team (Late Contact Info) Description 01/28/2025 11:30 AM EST Medication Management [facility] MEDICINE [address] [place] [address] Haroldo Pearson, PharmD [address] [place] [address] documented as of this encounter Visit Diagnoses Diagnosis Pain Generalized pain documented in this encounter Additional Health Concerns Assessment Noted Time PHQ-9 Depression Total Score: 0 10/01/19 23 2:04 PM EDT documented as of this encounter Care Teams Supervisor Channel Process Relationship Specialty Start Date End Date Batsheva Bhardwaj MD [address] [place], [place] [phone] PCP - General Family Medicine 01/07/19 Haroldo Pearson, PharmD [address] [place], [place] [phone] Pharmacist Pharmacy 12/03/24 [facility] 02/13/24 06/29/24 [facility] 06/09/24 documented as of this encounter
--- OUTSIDE RECORDS SUMMARY | 2025-01-11 12:05 | XMS_ITS | Clinical Summary ---
Author Organization [employer] Address 75 [facility] 7t [place] [address] Care Team Providers Care Tank Assembler Name Role Phone Batsheva Bhardwaj MD Primary Care Provide r Haroldo Pearson PharmD Unavailable [phone] Allergies No known active allergies Medications levETIRAcetam (Keppra) 250 MG tablet Take 250 mg by mouth 2 times daily. 08/03/19 22 Active acetaminophen (Tylenol 8 Hour) 650 MG ER tabletIndications :Pain TAKE 2 TABLETS BY MOUTH EVERY 8 HOURS NEEDED 180 tablet 07/17/19 24 Active amLODIPine (Norvasc) 10 MG tabletIndications :Primary hypertension TAKE 1 TABLET BY MOUTH EVERY MORNING 90 tablet 3 07/14/19 25 Active atorvastatin (Lipitor) 40 MG tabletIndications :Mixed hyperlipidemia TAKE 1 TABLET BY MOUTH AT BEDTIME 90 tablet 3 07/14/19 25 Active ferrous sulfate 325 (65 Fe) [...] BEDTIME 30 tablet 2 10/22/19 25 Active Blood Pressure kitIndications:Re sistant hypertension Use to check blood pressure daily 1 kit 12/10/19 25 Active omeprazole (PriLOSEC) [address] capsuleIndication s:Generalized abdominal pain TAKE 1 CAPSULE BY MOUTH EVERY MORNING BEFORE BREAKFAST 90 capsule 12/16/19 25 Active cetirizine (ZyrTEC) 10 MG tabletIndications :Seasonal allergies TAKE 1 TABLET BY MOUTH EVERY EVENING 90 tablet 12/16/19 25 Active Multiple Vitamins-Minerals (Cerovite Senior) tabletIndications :Generalized abdominal pain TAKE 1 TABLET BY MOUTH EVERY MORNING 90 tablet 12/16/19 25 Active lisinopril 40 MG tabletIndications :Resistant hypertension Take 1 tablet (40 mg) by mouth Once per day. 30 tablet 11 01/01/20 25 2025 Active sucralfate (Carafate) 1 g tabletIndications :Gastroesophageal reflux disease, unspecified whether esophagitis present TAKE 1 TABLET BY MOUTH TWICE DAILY IN THE MORNING AND IN THE EVENING WITH FOOD 60 tablet 1 01/11/20 25 Active Multiple Vitamins-Minerals (Cerovite Senior) tabletIndications :Generalized abdominal pain TAKE 1 TABLET BY MOUTH EVERY MORNING 90 tablet 09/23/19 25 2024 Discontinued omeprazole (PriLOSEC) [address] capsuleIndication s:Generalized abdominal pain TAKE 1 CAPSULE BY MOUTH EVERY MORNING BEFORE BREAKFAST 90 capsule 09/23/19 25 2024 Discontinued cetirizine (ZyrTEC) 10 MG tabletIndications :Seasonal allergies TAKE 1 TABLET BY MOUTH EVERY EVENING 90 tablet 09/23/19 25 2024 Discontinued sucralfate (Carafate) 1 g tabletIndications :Gastroesophageal reflux disease, unspecified whether esophagitis present TAKE 1 TABLET BY MOUTH TWICE DAILY IN THE MORNING AND IN THE EVENING WITH FOOD 60 tablet 1 11/13/19 25 2024 Discontinued lisinopril (Prinivil) 20 MG tabletIndications :Resistant hypertension Take 1 tablet (20 mg) by mouth Once per day. 30 tablet 5 12/10/19 25 2024 Discontinued(D ose adjustment) Active Problems Problem Noted Date Diagnosed Date [...] Encounters Date Type Department Care Team Description 01/08/2025 Refill [facility] MEDICINE [address] [place] [address] Batsheva Bhardwaj MD Essential hypertension; Gastroesophageal reflux disease, unspecified whether esophagitis present 12/31/2024 Travel 12/16/2024 Telephone [facility] MEDICINE [address] [place] [address] Batsheva Bhardwaj MD 12/14/2024 Refill [facility] MEDICINE [address] [place] [address] Batsheva Bhardwaj MD Generalized abdominal pain; Seasonal allergies; Essential hypertension 12/03/2024 Travel 11/12/2024 Refill [facility] MEDICINE [address] [place] [address] Batsheva Bhardwaj MD Essential hypertension; Gastroesophageal reflux disease, unspecified whether esophagitis present 10/20/2024 Refill [facility] MEDICINE [address] [place] [address] Batsheva Bhardwaj MD Hypertriglyceridemia; Primary insomnia 10/19/2024 Telephone [facility] MEDICINE [address] [place], [place] [phone] Batsheva Bhardwaj MD Appointment Request 10/12/2024 Refill [facility] MEDICINE [address] [place], [place] [phone] Batsheva Bhardwaj MD Anemia, unspecified type from Last 3 Months Immunizations Immunization Administration [...] Sign Reading Time Taken Comments Blood Pressure 162/82 12/31/2024 11:12 AM EDT Pulse 72 12/31/2024 11:12 AM EDT Temperature 36.5 C (97.7 F) [...] Description 01/28/2025 11:30 AM EST Medication Management [facility] MEDICINE [address] [place] [address] Haroldo Pearson, PharmD [address] [place], [place] [phone] Health Maintenance Due Date Last Done Comments CT Colonography 1953 Colonoscopy 1953 Colorectal Cancer Screening 1955 FIT DNA/Cologuard 1953 FIT 1953 FOBT 1955 Sigmoidoscopy 1955 Hepatitis C Screening 08/21/1971 DTaP/Tdap/Td Vaccines (1 - Tdap) 1972 Zoster Vaccines (1 of 2) 08/21/2003 Pneumococcal Vaccine: 50+ Years (2 of 2 - PPSV23) 03/04/2019 01/07/2019 COVID-19 Vaccine ( - season) 2024 Influenza Vaccine (#1) 2024 [...] 9:52 AM EDT) Triglycerides 699(H) <150 mg/dL [facility] Comment:Desirable Triglyceri de: less than 150 mg/dLBorderline High Triglyceride 150-199 mg/dLHigh Triglyceride: 200-499 mg/dLVery High Triglyceride: greater than or equal to 5OO mg/dL Cholesterol 263(H) <200 mg/dL [facility] Comment:Desirable Cholestero l: less than 200 mg/dLBorderline High Cholesterol: 200-239 mg/dLHigh Cholesterol: greater than 239 mg/dL LDL Cholesterol Calculated TNP <100 mg/dL [facility] Comment:Unable to calculate the LDL. The formula of Friedwald,Pimentel, and Thai is only valid if the triglycerides areless than 400 mg/dl. HDL Cholesterol 33(L) >40 mg/dL [facility] Comment:Desirable HDL: great er than 40 mg/dL Note: This HDL assay may give artificially low results in patients with liver disease. Blood Venous blood specimen / Unknown 07/06/2024 9:52 AM EDT 07/06/2024 11:17 AM EDT Batsheva Tracy MD LAB BLOOD ORDERABLES Final Result [facility] [address] [place] [address] [phone] from Last 3 Months or Most Recently Relevant to Health Maintenance Insurance [facility] [employer] (HMO D-SNP) Care Teams Tank Assembler Relationship Specialty Start Date End Date Batsheva Bhardwaj MD [address] [place] [address] PCP - General Family Medicine 01/07/19 Haroldo Pearson, PharmD [address] [place] [address] Pharmacist Pharmacy 12/03/24 [facility] 06/09/24
--- OUTSIDE RECORDS SUMMARY | 2025-01-11 12:05 | XMS_ITS | Encounter Summary ---
Author Organization [employer] Address [address] [facility] [address] h [place] [phone] Care Team Providers Care Blankbook Stitching Machine Operator Name Role Phone Batsheva Bhardwaj MD Primary Care Provide r Haroldo Pearson PharmD Unavailable Reason for Visit * Reason Comments Med Refill Encounter Details Date Type Department Care Team (Late Contact Info) Description 04/07/2022 Refill [facility] PEDS [address] [place] [address] Gerda Knapp ANP [address] [place] [address] Gastroesophageal reflux disease, unspecified whether esophagitis present [...] 01/28/2025 11:30 AM EST Medication Management [facility] MEDICINE [address] [place] [address] Haroldo Pearson, PharmD [address] [place] [address] documented as of this encounter Visit Diagnoses Diagnosis Gastroesophageal reflux disease, unspecified whether esophagitis present documented in this encounter Care Teams Blankbook Stitching Machine Operator Relationship Specialty Start Date End Date Batsheva Bhardwaj MD [address] [place] [address] PCP - General Family Medicine 01/07/19 Haroldo Pearson, PharmD [address] [place] [address] Pharmacist Pharmacy 12/03/24 [facility] 02/13/24 06/29/24 [facility] 06/09/24 documented as of this encounter
== END 2025-01-11 10:16 | disposition home or self-care (01) ==
LOC: HO.MRI 10:15
PROVIDERS: Visit Provider Registered Nurse
DX: H93.13 Tinnitus, bilateral (principal); G40.909 Epilepsy, unspecified, not intractable, without status epilepticus
CPT/HCPCS: 70551